=== PATIENT | male | born 1960 | race Caucasian/White ===

== ENCOUNTER 2017-12-14 14:58 | Outpatient (CLI) | payer BC | END 2017-12-14 14:59 | disposition home or self-care (01) | LOC: BICMRI 14:58 | PROVIDERS: ATTEND Chiropractor | DX: M25.511 Pain in right shoulder (principal); M54.2 Cervicalgia; M79.601 Pain in right arm; M75.111 Incomplete rotator cuff tear or rupture of right shoulder, not specified as traumatic; M19.011 Primary osteoarthritis, right shoulder | CPT/HCPCS: 72141 ==

== ENCOUNTER 2018-01-19 09:04 | Outpatient (CLI) | payer BC | END 2018-01-19 09:05 | disposition home or self-care (01) | LOC: BICCT 09:04 | DX: M19.031 Primary osteoarthritis, right wrist (principal) ==

== ENCOUNTER 2019-07-16 17:37 | Inpatient (IN) | payer BC ==
[2019-07-16] MEDS ORDERED: Fentanyl 100 MCG/2 ML VIAL ONE ×2 (17:41→17:48)
--- NOTE | 2019-07-16 18:11 | RAD ---
XR Femur Lt 2 View STANDARD INDICATION: Thrown from horse with right leg pain COMPARISON: None. FINDINGS: Bones: There is a comminuted fracture involving the proximal right subtrochanteric femur. There is a nondisplaced fracture component extending into the right intertrochanteric region. There are 2 separate butterfly fragments involving the medial aspect of the fracture. There is an additional obliquely oriented comminuted fracture involving the distal femoral metaphysea l region without overt extension into the right knee. The distal fracture is displaced posteriorly approximately one half shaft width with medial displacement approximately one cortex width. Soft tissues: There are vascular calcifications seen within the adjacent soft tissues. Joints: The visualized knee and hip appear within normal limits. IMPRESSION: Comminuted segmental fracture of the right femoral shaft and right distal diaphyseal becky on. The proximal fracture component has a nondisplaced fracture that extends into the right intertrochanteric region.
[2019-07-16] MEDS ORDERED: Adacel (T-DAP) 0.5 ML SYRINGE ONE (18:23)
[2019-07-16 18:34] LABS: #Eosinphils 0.1 thou/uL (0.0-0.7); #Lymphocytes 1.8 thou/uL (1.20-3.40); #Monocytes 0.6 thou/uL (0.11-0.59); #Neutrophils 3.9 thou/uL (1.40-6.50); %Basophils 0.4 % (0.0-1.0); %Eosinophils 0.9 % (0.0-10.0); %Monocytes 8.7 % (0.0-10.0); Mean Corpuscular HGB CONC 34.6 g/dL (32.0-36.0); Mean Corpuscular Hemoglobin 33.8 pg (27.0-31.0); Mean Corpuscular Volume 97.7 fL (78.0-98.0); Mean Platelet Volume 7.2 fL (7.4-10.4); Platelet Count 226 thou/uL (130-400); RBC Distribution Width 13.7 % (11.5-14.5); Red Blood Cell (RBC) Count 3.86 mill/uL (4.70-6.10); White Blood Cell (WBC) Count 6.3 thou/uL (4.8-10.8)
[2019-07-16 18:41] LABS: INR-International Normal Ratio 0.9; PTT 23.1 SEC (22.9-36.1); Prothrombin Time 12.4 SEC (12.0-14.7)
[2019-07-16 18:54] LABS: ALT (SGPT) 133 U/L (8-55); AST (SGOT) 120 U/L (5-34); Albumin 4.3 g/dL (3.4-4.8); Alkaline Phosphatase 52 U/L (40-110); Anion Gap 17 mmol/L (10-20); BUN (Urea Nitrogen) 15 mg/dL (8.4-25.7); Bilirubin, Total 0.4 mg/dL (0.2-1.2); Calc. Creatinine Clearance 0 mL/min (70-130); Calcium 9.1 mg/dL (7.8-10.44); Carbon Dioxide 23 mmol/L (23-31); Chloride 101 mmol/L (98-107); Estimated GFR-MDRD 37; Globulin 2.6 g/dL (2.4-3.5); Glucose 114 mg/dL (80-115); Potassium 4.3 mmol/L (3.5-5.1); Protein, Total 6.9 g/dL (5.8-8.1); Sodium 137 mmol/L (136-145)
[2019-07-16] MEDS ORDERED: HYDROmorphone 0.5 MG/0.5 ML SYRINGE ONE ×2 (18:55→19:57)
[2019-07-16] MEDS ORDERED: Promethazine HCl 25 MG/ML VIAL SLOW IVP PRN (19:17)
[2019-07-16] MEDS ORDERED: Dextrose 5% in Water 1,000 ML IV PRN (19:17)
[2019-07-16] MEDS ORDERED: hydrALAZINE 20 MG/ML VIAL SLOW IVP PRN (19:17)
[2019-07-16] MEDS ORDERED: Dextrose 50% Abboject 50 ML SYRINGE SLOW IVP PRN (19:17)
[2019-07-16] MEDS ORDERED: Ondansetron PF 4 MG/2 ML Vial IVP PRN (19:17)
[2019-07-16] MEDS ORDERED: traMADol HCl 50 MG TAB PO PRN (19:21)
[2019-07-16] MEDS ORDERED: Acetaminophen 500 MG TAB PO SCH (19:30)
--- NOTE | 2019-07-16 19:31 | RAD ---
AP view of the pelvis INDICATION: History of being thrown from a horse with right femur fracture COMPARISON: Right femur radiographs dated 07/16/2019 FINDINGS: Exam is limited due to heavy rotation of the pelvis to the left. Bones: There is partial visualization of patient's known proximal right femoral shaft fracture. No ad ditional suspected pelvic fracture is noted. However, exam is heavily limited due to positioning. Hips: The suspected component involving the right intertrochanteric region is not demonstrated in may been artifactual on the prior exam. SI joints and symphysis pubis: Normal appearing. Intrapelvic contents: Within normal limits. IMPRESSION: Limited exam. Proximal right femur fracture.
--- NOTE | 2019-07-16 19:37 | RAD ---
EXAM: CHEST ONE VIEW: 07/16/19 HISTORY: Injury from trauma, preoperative evaluation. COMPARISON: None. FINDINGS: Borderline heart size. Old granulomatous disease. No confluent pneumonia, overt edema, or pleural ef fusion. IMPRESSION: No significant acute intrathoracic disease. No evidence for pneumonia. No pneumothorax or pleural eff usion. POS: RRE
[2019-07-16 19:54] LABS: Lactic Acid 2.7 mmol/L (0.5-2.2)
[2019-07-16] MEDS ORDERED: CEFAZOLIN 2 GM in Premix Bag 1 BAG IVPB SCH (21:15)
--- NOTE | 2019-07-16 21:32 | HP ---
REFERRING PHYSICIAN: Dr. Figueroa. CONSULTING PHYSICIAN: Dr. Ng. HISTORY OF PRESENT ILLNESS: The patient is a 59-year-old male who presented to the emergency department via EMS after being bucked off the horse. Also on arrival , the patient was found to have right shaft and distal femur fracture. Trauma was consulted for admission. Orthopedic Surgery was also consulted, and Dr. Ng plans to take the patient to the OR tomorrow. Upon my evaluation, the patient denied any anticoagulation use or loss of consciousness. He reported he remembered the entire incident. He landed on his right leg, then subsequently on his buttock. He did not strike his head. There were no other signs of trauma on his body. He denies numbness or tingling in his arms or legs. Pulses are intact in all 4 extremities. REVIEW OF SYSTEMS: All additional 10-point review of systems negative except as indicated above. PAST MEDICAL HISTORY: Hypertension, hyperlipidemia, GERD, alcohol abuse. PAST SURGICAL HISTORY: Appendectomy; right wrist, left ankle, and right shoulder surgeries. SOCIAL HISTORY: The patient reports drinking beer daily. He has previously been hospitalized for withdrawal symptoms. He also chews tobacco. He denies any drug use. MEDICATIONS: 1. Amlodipine. 2. Lisinopril. 3. Statin. 4. Nexium. ALLERGIES: NO KNOWN DRUG ALLERGIES. PHYSICAL EXAMINATION: VITAL SIGNS: The patient is afebrile. Respirations 24, oxygen saturation 95% on room air, blood pressure 115/84, pulse 92. PRIMARY SURVEY: Airway intact. Adequate breath sounds bilaterally. 2+ pulses in bilateral radials, femorals, and DPs. GCS 15. Gross motor and sensation intact. There is deformity to the right anterior femur. No bruising or external bleeding. The right lower extremity is also shortened. SECONDARY SURVEY: HEAD: Normocephalic and atraumatic. No gross palpable skull deformities or tenderness. EYES: Pupils, 3 to 2, equal, round, reactive to light. ENT: No hemotympanum. No epistaxis. No septal hematoma. Midface stable to manipulation. No blood in the oropharynx. Dentition is intact. No anterior neck injury/crepitus/tenderness. C-spine, no step-offs or deformities. Tenderness to palpation of the C-spine. C-collar not in place. CHEST: Nontender. No crepitus. No abrasions or ecchymosis. Equal chest movement. Old scar still left anterior chest wall from childhood. ABDOMEN: Soft, nontender, nondistended. PELVIS: Stable to palpation. Nontender. No abrasions or ecchymosis. RECTAL: Deferred. GENITOURINARY: Normal external genitalia. No blood at the meatus. EXTREMITIES: There is deformity to the right anterior thigh with shortening of the right lower extremity. No abrasions or ecchymosis. 2+ pulses in bilateral radials, femorals, and DPs. BACK/SPINE: No step-offs, deformities, or tenderness to palpation of the thoracic or lumbar spine. No abrasions or ecchymosis noted. NEUROLOGIC: 5/5 strength in bilateral air tucker, plantar flexion, and dorsiflexion. Gross normal sensation x4 extremities. LABORATORY FINDINGS: White count 6.3, hemoglobin 13.0, hematocrit 37.7, platelets 226. Sodium 137, potassium 4.3, chloride 101, carbon dioxide 23, BUN 15, creatinine 1.87, glucose 114, lactic acid 2.7, total bilirubin 0.4, AST 120, ALT 133, CK 99. Blood alcohol level 133. DIAGNOSTIC FINDINGS: Chest x-ray demonstrates no significant acute intrathoracic disease. No evidence for pneumonia. No pneumothorax or pleural effusion. Pelvic x-ray demonstrates limited exam, proximal right femur fracture. X-ray of the right femur demonstrates comminuted segmental fracture of the right femoral shaft and right distal diaphyseal region. The proximal fracture component has a nondisplaced fracture that extends into the right intertrochanteric region. ASSESSMENT: 1. Status post bucked from horse. 2. Right femoral shaft and distal femur fracture. 3. Acute kidney injury. 4. Transaminitis, likely due to chronic alcohol abuse. 5. History of hypertension, hyperlipidemia, gastroesophageal reflux disease, and alcohol abuse. 6. Acute alcohol intoxication. 7. Polysubstance abuse. PLAN: The patient will receive a regular diet tonight and be n.p.o. after midnight for the OR tomorrow with Dr. Ng for fixation of multiple right-sided femur fractures. The patient is to receive 1 L of normal saline in the emergency department followed by normal saline at 120 an hour. He will be n.p.o. at midnight. We will repeat blood work tomorrow and reassess acute kidney injury at that time. The patient will receive Serax, folic acid, thymine, multivitamins for alcohol withdrawal prevention. He will receive both p.o. and IV pain medications that are scheduled and p.r.n. for pain control. He will begin working with Physical and Occupational Therapy postoperatively. Until that time, he will be in bed with a knee immobilizer and Quintero traction. We will restart his home medications as clinically indicated. This patient was discussed with Dr. Figueroa before this dictation. Job ID: [id number] [facility]
[2019-07-16] MEDS: Cyclobenzaprine 10 MG TAB PO PRN (21:44)
[2019-07-16] MEDS: Senokot S 8.6-50 MG TAB PO SCH (21:44)
[2019-07-16] MEDS: Famotidine/PF 20 mg/2ml Vial SLOW IVP SCH (21:44)
[2019-07-16] MEDS: Morphine 4 MG/ML VIAL SLOW IVP PRN (21:44)
[2019-07-16] MEDS: Gabapentin 100 MG CAP PO SCH (21:44)
[2019-07-16] MEDS: traMADol HCl 50 MG TAB PO PRN (21:45)
[2019-07-16] MEDS: Oxazepam 10 MG CAP PO SCH (21:45)
[2019-07-16] MEDS: Sodium Chloride 0.9% 1,000 ML IV SCH (21:52)
[2019-07-16 22:15] VITALS: BMI 29.1
[2019-07-16] MEDS: Acetaminophen 500 MG TAB PO SCH (23:28)
[2019-07-16 23:38] LABS: Amphetamine Detected (NotDetected); Barbiturates Screen Not Detected (NotDetected); Benzodiazepine Screen Detected (NotDetected); Cocaine Metabolite Screen Not Detected (NotDetected); Medtox Control Line Valid? VALID (VALID); Medtox Reader # READER 4; Methadone Not Detected (NotDetected); Methamphetamine Not Detected (NotDetected); Opiate Screen Detected (NotDetected); Oxycodone Screen Not Detected (NotDetected); Phencyclidine (PCP) Not Detected (NotDetected); THC/Cannabinoid Screen Not Detected (NotDetected); Tricyclic Screen Not Detected (NotDetected)
[2019-07-17] MEDS: Morphine 4 MG/ML VIAL SLOW IVP PRN ×5 (00:23→16:39)
[2019-07-17] MEDS: traMADol HCl 50 MG TAB PO PRN ×2 (05:02→21:05)
[2019-07-17] MEDS: Acetaminophen 500 MG TAB PO SCH ×3 (05:03→17:12)
[2019-07-17] MEDS: Oxazepam 10 MG CAP PO SCH ×3 (05:04→21:05)
[2019-07-17 05:40] LABS: #Eosinphils 0.1 thou/uL (0.0-0.7); #Lymphocytes 1.5 thou/uL (1.20-3.40); #Monocytes 0.5 thou/uL (0.11-0.59); %Basophils 0.5 % (0.0-1.0); %Eosinophils 1.2 % (0.0-10.0); %Lymphocytes 24.3 % (21.0-51.0); %Monocytes 7.4 % (0.0-10.0); %Neutrophils 66.7 % (42.0-75.0); Hemoglobin 11.2 g/dL (14.0-18.0); Mean Corpuscular HGB CONC 34.1 g/dL (32.0-36.0); Mean Corpuscular Hemoglobin 33.3 pg (27.0-31.0); Mean Corpuscular Volume 97.7 fL (78.0-98.0); Mean Platelet Volume 7.2 fL (7.4-10.4); Platelet Count 211 thou/uL (130-400); RBC Distribution Width 13.7 % (11.5-14.5); Red Blood Cell (RBC) Count 3.36 mill/uL (4.70-6.10); White Blood Cell (WBC) Count 6.1 thou/uL (4.8-10.8)
[2019-07-17 05:57] LABS: Lactic Acid 1.2 mmol/L (0.5-2.2)
[2019-07-17] MEDS: Sodium Chloride 0.9% 1,000 ML IV SCH ×2 (06:40→14:54)
[2019-07-17 06:45] LABS: Anion Gap 13 mmol/L (10-20); BUN (Urea Nitrogen) 15 mg/dL (8.4-25.7); Calc. Creatinine Clearance 125 mL/min (70-130); Calcium 8.4 mg/dL (7.8-10.44); Carbon Dioxide 25 mmol/L (23-31); Chloride 102 mmol/L (98-107); Estimated GFR-MDRD Greater than 90; Glucose 114 mg/dL (80-115); Magnesium 1.7 mg/dL (1.6-2.6); Phosphorus 3.1 mg/dL (2.3-4.7); Sodium 136 mmol/L (136-145)
[2019-07-17] MEDS ORDERED: Fentanyl 250 MCG/5 ML VIAL ONE (07:09)
--- NOTE | 2019-07-17 07:27 | CON ---
DATE OF CONSULTATION: 07/16/2019 REQUESTING PHYSICIAN: Carlos Figueroa MD. BRIEF HISTORY OF PRESENT ILLNESS: The patient is examined in the emergency room at [facility]. He is a 59-year-old gentleman who presented to the emergency room after being bucked off a horse. Upon arrival at [place], he had complaints of right thigh pain. Workup included x-rays of the right thigh and hip. These x-rays demonstrated a proximal femur fracture with a nondisplaced fracture line through the intertrochanteric region of the femur and then a comminuted fracture in the subtroch portion of the proximal femur. In addition to these proximal fractures, he was also found to have a short oblique fracture of the supracondylar distal femur on the same side. There was no loss of consciousness. The patient is currently not on any anticoagulants. His sole complaint is that of right leg pain. PAST MEDICAL HISTORY: Remarkable for hypertension, gastroesophageal reflux. PAST SURGICAL HISTORY: Includes multiple orthopedic injuries with left ankle fracture, right wrist fracture, a right shoulder arthroscopy, as well as an appendectomy. MEDICATIONS: Include 1. Amlodipine. 2. Lisinopril. 3. Nexium. 4. A medication for cholesterol. ALLERGIES: NONE KNOWN. SOCIAL HISTORY: He does drink alcohol daily. He also chews tobacco. He denies recreational drug use. FAMILY HISTORY: Noncontributory for this injury. REVIEW OF SYSTEMS: The patient denies recent fevers, chills, or sweats. Denies chest pain or shortness of breath. Denies numbness or tingling in the lower extremities. PHYSICAL EXAMINATION: VITAL SIGNS: The patient is afebrile. He has a heart rate of 92, respiratory rate of 24, and blood pressure 115/84. HEENT: Atraumatic and normocephalic. HEART: Shows a regular rate and rhythm without murmur. LUNGS: Clear to auscultation bilaterally with good breath sounds. ABDOMEN: Soft and nontender. PELVIS: Stable. EXTREMITIES: Remarkable for bilateral upper extremities with no complaints of pain. He is moving shoulders, elbows, wrists and hands without difficulty. He also denies any problems with the left lower extremity. The right lower extremity is in skin traction. He reports some pain throughout the thigh. There is no appreciable deformity of the lower leg or ankle or foot. He is able to wiggle his toes. He has intact subjective sensation over the dorsal and plantar surfaces of the foot. LABORATORY DATA: White count of 6.3, hematocrit of 37.7, and 226,000 platelets. IMAGING DATA: X-rays: Two-view x-ray of the right femur remarkable for a comminuted fracture of the subtrochanteric region with a fracture line extending into the intertrochanteric region and then a supracondylar oblique distal femur fracture approximately 1 inch above the physeal scar distally. AP pelvis x-ray confirms the proximal femur fracture. ASSESSMENT: A 59-year-old gentleman status post thrown from horse sustaining segmental fracture of right femur. PLAN: At this time, the patient is admitted to the Trauma Service. I have discussed with the patient that he does have a complex fracture of this right femur that presents some challenges given the subtrochanteric portion proximally as well as the extreme distal portion of the supracondylar fracture. I have discussed with the patient that at this time my plan would be to proceed with open reduction and internal fixation of both sites using separate hardware for the two major fracture sites. Today we also discussed risks and benefits of surgery. Risks include, but are not limited to, bleeding, infection, nerve injury, DVT, PE, malunion, nonunion, hardware failure, loss of limb or life. The patient appears to understand and does wish to proceed. Informed consent will be obtained prior to surgery. Job ID: [id number]
[2019-07-17] MEDS ORDERED: Oxazepam 10 MG CAP PO SCH (08:00)
[2019-07-17] MEDS ORDERED: Ondansetron HCl/PF 4 MG/2 ML Vial IVP PRN (10:14)
[2019-07-17] MEDS ORDERED: Promethazine HCl 25 MG/ML VIAL SLOW IVP PRN (10:14)
[2019-07-17] MEDS ORDERED: Promethazine HCl 25 MG/ML VIAL IM PRN (10:14)
[2019-07-17] MEDS ORDERED: Rocuronium Bromide 10 MG/ML (10ML VIAL) ONE (10:33)
[2019-07-17] MEDS ORDERED: Ketorolac Tromethamine 30 MG/ML VIAL ONE (10:33)
[2019-07-17] MEDS ORDERED: Lidocaine 1% PF 5 ML VIAL ONE (10:33)
[2019-07-17] MEDS ORDERED: Ondansetron PF 4 MG/2 ML Vial ONE (10:33)
[2019-07-17] MEDS ORDERED: PHENYLEPHRINE-NS 100 MCG/ML 10 ML SYRINGE ONE (10:33)
[2019-07-17] MEDS ORDERED: Glycopyrrolate 0.2 MG/ML 5 ML SYRINGE ONE (10:33)
[2019-07-17] MEDS ORDERED: PROPOFOL 200 MG/20 ML VIAL ONE (10:33)
[2019-07-17] MEDS ORDERED: Fentanyl 100 MCG/2 ML VIAL ONE (11:25)
--- NOTE | 2019-07-17 13:55 | PDOC.BPN ---
- Brief Progress Note I have discussed this patient with Sindy Ahuja and reviewed the pertinent imaging and laboratory studies. I agree with her documented findings and plan. Briefly, this is a 59 yo male s/p ejection from a horse with complex femur fracture, alcohol intoxication, and evidence of polysubstance abuse. ORS is planning ORIF of his femur fracture today. His laboratory abnormalities have resolved with IVF resuscitation. Rehabilitation consultation pending.
[2019-07-17] MEDS: Famotidine/PF 20 mg/2ml Vial SLOW IVP SCH ×2 (14:37→21:06)
[2019-07-17] MEDS: Gabapentin 100 MG CAP PO SCH ×4 (14:38→21:06)
[2019-07-17] MEDS: Senokot S 8.6-50 MG TAB PO SCH ×2 (14:38→21:05)
[2019-07-17] MEDS: Polyethylene Glycol 3350 17 GM Packet PO SCH (14:38)
[2019-07-17] MEDS: Multivitamin W/ Minerals 1 TAB PO SCH (14:38)
[2019-07-17] MEDS: Folic Acid 1 MG TAB PO SCH (14:38)
[2019-07-17] MEDS: Thiamine 100 MG TAB PO SCH (14:40)
[2019-07-17 16:08] LABS: #Monocytes 0.5 thou/uL (0.11-0.59); #Neutrophils 6.5 thou/uL (1.40-6.50); %Basophils 0.5 % (0.0-1.0); %Eosinophils 0.4 % (0.0-10.0); %Lymphocytes 12.8 % (21.0-51.0); %Monocytes 5.7 % (0.0-10.0); %Neutrophils 80.5 % (42.0-75.0); Hemoglobin 9.7 g/dL (14.0-18.0); Mean Corpuscular HGB CONC 34.3 g/dL (32.0-36.0); Mean Corpuscular Hemoglobin 33.6 pg (27.0-31.0); Mean Corpuscular Volume 97.9 fL (78.0-98.0); Mean Platelet Volume 7.1 fL (7.4-10.4); Platelet Count 194 thou/uL (130-400); RBC Distribution Width 13.8 % (11.5-14.5); Red Blood Cell (RBC) Count 2.89 mill/uL (4.70-6.10); White Blood Cell (WBC) Count 8.1 thou/uL (4.8-10.8)
--- NOTE | 2019-07-17 18:43 | PRG ---
DATE OF SERVICE: 07/17/2019 SUBJECTIVE: The patient was admitted this past evening status post being thrown from a horse, in which he sustained a right femoral shaft and distal femur fracture. The patient underwent open reduction and internal fixation of same today and he tolerated this procedure well. Postoperatively, his pain is being controlled and he is tolerating a diet. Due to timing, he is not able to work with therapy today. The patient at time of admission showed an acute kidney injury that has subsequently resolved. PHYSICAL EXAMINATION: VITAL SIGNS: Temperature is 97.8, heart rate 86, blood pressure 123/80, respirations 20, and oxygen saturation 95% on 3 L via nasal cannula. GENERAL: The patient is resting comfortably in bed. He was awake when I entered the room, but he was awaken to verbal stimuli. He has no complaints at this time. HEENT: Unremarkable. LUNGS: Clear to auscultation bilaterally. HEART: Regular rate and rhythm. ABDOMEN: Soft, flat, and nontender with active bowel sounds. EXTREMITIES: Neurovascularly intact x4. Postop dressing is clean, dry, and intact. ASSESSMENT: 1. Status post thrown from horse. 2. Status post open reduction and internal fixation of right segmental femur fracture. 3. Acute kidney injury, resolved. 4. Transaminitis, likely due to chronic alcohol abuse. 5. Acute alcohol intoxication. 6. Polysubstance abuse. 7. History of hypertension, hyperlipidemia, gastroesophageal reflux disease, and alcohol abuse. PLAN: Will be to continue supportive care. Encourage physical and occupational therapy and discuss placement tomorrow. The patient due to his history of alcohol abuse, was started on Serax, folic acid, and thiamin. All of his IV pain medications have been converted to p.o. pain medications. Job ID: [id number]
[2019-07-17] MEDS: Ibuprofen 600 MG TAB PO SCH (21:04)
[2019-07-17] MEDS: Cyclobenzaprine 10 MG TAB PO PRN (21:06)
--- NOTE | 2019-07-17 21:45 | OP ---
DATE OF PROCEDURE: 07/17/2019 PREOPERATIVE DIAGNOSES: 1. Right intertrochanteric/subtrochanteric femur fracture. 2. Right supracondylar distal femur fracture. POSTOPERATIVE DIAGNOSES: 1. Right intertrochanteric/subtrochanteric femur fracture. 2. Right supracondylar distal femur fracture. PROCEDURES PERFORMED: 1. Open reduction and internal fixation of right intertrochanteric/subtrochanteric femur fracture. 2. Open reduction and internal fixation of right supracondylar distal femur fracture. ANESTHESIA: General. ESTIMATED BLOOD LOSS: 400 mL. SUPERVISOR FUR DRESSING: Jack Uriarte PA-C. IMPLANTS: 1. Synthes system was used with a 10-hole 135-degree DHS side plate and 100-degree hip screw with 4.5 mm cortical screws for the sideplate. 2. Variable angle LCP curved condylar plate for the distal femur with combination of cortical and locking screws. COMPLICATIONS: None. DRAINS: None. SPECIMENS: None. OUTCOME: Near-anatomic alignment. INDICATIONS FOR PROCEDURE: The patient is a 59-year-old gentleman status post thrown from a horse sustaining a complex fracture of the right femur. His fracture starts at the intertrochanteric region with a nondisplaced intertrochanteric fracture line, but then extends into a comminuted subtrochanteric fracture and then there is a segmental fracture distally just above the supracondylar region through the metaphysis. After discussion with the patient including risks and benefits, we decided to proceed with open reduction and internal fixation. Informed consent has been obtained. I believe all questions have been answered. DESCRIPTION OF PROCEDURE: The patient was brought to the operating room and a time-out performed followed by induction of general anesthesia. He was positioned supine on the fracture table with the injured extremity held in gentle longitudinal traction, but also supported with an armboard. The well leg was scissored to allow for AP and lateral C-arm imaging of the right hip. Next, a sterile prep and drape was performed of the right lateral thigh. Under C-arm guidance, an incision was made just distal to the greater trochanter extending down the lateral thigh. After skin was sharply incised, dissection was carried down to the underlying fascia marybeth and this was incised in line with the skin incision revealing the underlying fascia of the vastus lateralis. This fascia was also incised in line with the skin incision. Then, the muscle belly was reflected off the posterior leaflet and reflected anteriorly exposing the lateral cortex of the femur. Using 135-degree guide, a threaded guidewire was passed through the lateral cortex of the femur up the femoral neck into the femoral head approaching a [id number] position. Once appropriately positioned, this was further prepared using a step drill to an appropriate depth and then a tap to accept the hip screw. The hip screw was inserted under C-arm guidance. Next, a 10-hole plate was passed over this hip screw with the barrel driven up into the femoral canal over this hip screw. This proximal construct was reduced to the distal shaft fragment, this under C-arm guidance and direct visualization. Once acceptably aligned, it was held in place with bone clamps and then using compression technique, cortical screws were placed distally. This was then followed by insertion of a total of 3 interfragmentary screws through the plate capturing the large medial butterfly fragment. This resulted in acceptable alignment of this subtrochanteric fracture and stabilization of the intertrochanteric extension. This wound was irrigated with Pulsavac and then closed in layers. Some damage to the muscle belly that incurred at the time of the fracture was reapproximated with 0 Vicryl followed by #1 Vicryl for the fascia marybeth and then 2-0 Vicryl subcutaneously and ian for the skin. Attention was placed distally. Again, a lateral incision was made this time starting at about the joint line, extending proximally along the lateral border of the distal femur. After skin was sharply incised, dissection was carried down to the iliotibial band. This was incised in line with skin incision reflected anteriorly and posteriorly. The vastus lateralis was reflected anteriorly gaining access to the fracture. The fracture was able to be reduced under direct visualization and held in place provisionally with a bone clamp and then a total of 3 K-wires were passed across the fracture to further stabilize it. AP and lateral C-arm images were then obtained to confirm acceptable reduction of the fracture. A curved condylar plate was affixed to the lateral aspect of the distal femur. This was held in place initially with a wire at the intercondylar region and then a cortical screw was placed proximal to the main fracture line. An additional cortical screw was then placed distal to the main fracture line getting good stability of the plate against the femur. Multiple locking screws were placed both proximally and distally to further stabilize this construct. At the completion of this, final AP and lateral C-arm images were obtained that showed near-anatomic alignment. This wound was again irrigated with Pulsavac and then closed in layers with #1 Vicryl for the IT band followed by 2-0 Vicryl and ian for the skin. Xeroform gauze and tape dressing were applied to the lateral thigh and then, the patient was transferred to recovery room in stable condition. There were no complications. He tolerated the procedure well. Job ID: [id number]
[2019-07-18] MEDS: Acetaminophen 500 MG TAB PO SCH ×4 (00:54→17:22)
[2019-07-18] MEDS: traMADol HCl 50 MG TAB PO PRN ×3 (03:15→18:20)
[2019-07-18] MEDS: Ibuprofen 600 MG TAB PO SCH ×3 (03:15→17:23)
[2019-07-18] MEDS: Cyclobenzaprine 10 MG TAB PO PRN (03:16)
[2019-07-18] MEDS: Oxazepam 10 MG CAP PO SCH ×3 (05:42→21:28)
[2019-07-18 06:03] LABS: #Eosinphils 0.1 thou/uL (0.0-0.7); #Lymphocytes 1.6 thou/uL (1.20-3.40); #Monocytes 0.5 thou/uL (0.11-0.59); #Neutrophils 3.9 thou/uL (1.40-6.50); %Basophils 0.7 % (0.0-1.0); %Lymphocytes 25.6 % (21.0-51.0); %Monocytes 7.4 % (0.0-10.0); %Neutrophils 64.3 % (42.0-75.0); Hemoglobin 8.9 g/dL (14.0-18.0); Mean Corpuscular HGB CONC 33.6 g/dL (32.0-36.0); Mean Corpuscular Hemoglobin 32.9 pg (27.0-31.0); Mean Corpuscular Volume 98.1 fL (78.0-98.0); Mean Platelet Volume 7.5 fL (7.4-10.4); Platelet Count 167 thou/uL (130-400); RBC Distribution Width 13.8 % (11.5-14.5); Red Blood Cell (RBC) Count 2.69 mill/uL (4.70-6.10); White Blood Cell (WBC) Count 6.1 thou/uL (4.8-10.8)
--- NOTE | 2019-07-18 07:50 | RAD ---
Radiograph right femur 2 views: DATE: 07/18/2019 10:48 AM HISTORY: 59-year-old male with acute traumatic, comminuted right multifocal femoral diaphyseal fractures. COMPARISON: 07/17/2019 FINDINGS: Total of 10 small [id number] fluoroscopic spot images obtained with C-arm in the OR. Distal femoral metaphyseal fracture has been reduced and fixated with lateral metallic plate with mul tiple screws from distal diaphysis to femoral condyles. Nearly anatomical alignment. The right subcapital proximal femoral diaphyseal fractures have been reduced, and fixated with dynamic compress ion screw (upper tip within central portion of femoral head) attached to long lateral metallic plate that reaches mid diaphysis, with multiple screws. IMPRESSION: Ongoing open reduction internal fixation of acute, traumatic, comminuted, displaced fractures of prox imal femoral shaft and distal femoral metaphysis.
[2019-07-18] MEDS: Thiamine 100 MG TAB PO SCH (09:55)
[2019-07-18] MEDS: Multivitamin W/ Minerals 1 TAB PO SCH (09:56)
[2019-07-18] MEDS: Folic Acid 1 MG TAB PO SCH (09:56)
[2019-07-18] MEDS: Senokot S 8.6-50 MG TAB PO SCH ×2 (09:56→21:28)
[2019-07-18] MEDS: Polyethylene Glycol 3350 17 GM Packet PO SCH (09:56)
[2019-07-18] MEDS: Gabapentin 100 MG CAP PO SCH ×3 (09:56→21:28)
[2019-07-18] MEDS: Enoxaparin Sodium 40 MG/0.4 ML SYRINGE SC SCH (09:56)
--- NOTE | 2019-07-18 15:17 | PRG ---
DATE OF SERVICE: 07/18/2019 SUBJECTIVE: This is a patient who was bucked off a horse and is postop day 1 from repair of a right femoral shaft and distal femur fracture. He states his pain is well controlled today. He anticipates being able to work with Physical Therapy today. It is likely recommended that the patient will need to go to rehab. His was present with him today during rounds and informed us of other medicines the patient needs to be taking. OBJECTIVE: VITAL SIGNS: Afebrile, heart rate 87, respirations 12, and saturating 96% on 2 L nasal cannula, blood pressure 112/73. GENERAL: Well appearing. RESPIRATORY: Clear to auscultation bilaterally. No acute respiratory distress. CARDIAC: Regular rate and rhythm. No murmurs. ABDOMEN: Soft, flat, nondistended. Active bowel sounds. NEUROLOGIC: The patient is not having any tremors nor appears agitated. ASSESSMENT: 1. Status post thrown from horse. 2. Postoperative day 1, status post open reduction and internal fixation of right segmental femur fracture. 3. Acute kidney injury, resolved. 4. Transaminitis, improving. 5. Acute alcohol intoxication. 6. Polysubstance abuse. 7. History of hypertension, hyperlipidemia, gastroesophageal reflux disease, and alcohol abuse. PLAN: Continue supportive care. Continue Serax for history of alcoholism. Continue to monitor for withdrawals. Continue PT and OT. We will add iron and vitamin C today for his iron deficiency anemia. We will also begin Lovenox 40 mg daily for DVT prophylaxis. We will place his rehab screen today as well for disposition. Job ID: [id number] MTDD
[2019-07-18] MEDS: Ferrous Sulfate 325 MG TAB PO SCH (17:22)
[2019-07-18] MEDS: Ascorbic Acid 500 mg Chewable Tablet PO SCH (17:23)
[2019-07-19] MEDS: Acetaminophen 500 MG TAB PO SCH ×2 (00:04→05:24)
[2019-07-19] MEDS: Ibuprofen 600 MG TAB PO SCH (02:23)
--- NOTE | 2019-07-19 02:29 | PRG ---
DATE OF SERVICE: 07/19/2019 SUBJECTIVE: The patient is currently on the surgical floor. He is postop day 1, status post open reduction and internal fixation of a right femur fracture. The patient reports that his pain is controlled, he is tolerating a diet and has begun working with Physical Therapy today. The patient reports that his desire is to go home with home PT at time of discharge. PHYSICAL EXAMINATION: VITAL SIGNS: Stable. The patient is afebrile. GENERAL: The patient is resting comfortably in bed. He is awake, alert, and oriented x3. Ankush Coma Scale is 15. LUNGS: Clear to auscultation bilaterally. HEART: Regular rate and rhythm. ABDOMEN: Soft, flat, nontender with active bowel sounds. EXTREMITIES: Neurovascularly intact x4. Right lower extremity has a clean, dry, and intact dressing. ASSESSMENT: 1. Status post being thrown from horse. 2. Postop day #1, status post open reduction and internal fixation of right femur fracture. 3. Acute kidney injury, resolved. 4. Acute alcohol intoxication, resolved. 5. Polysubstance abuse. 6. History of hypertension, hyperlipidemia, gastroesophageal reflux disease, and alcohol abuse. PLAN: Plan will be to continue supportive care. Encourage physical and occupational therapy and await final placement decision. Job ID: [id number]
[2019-07-19 05:03] LABS: #Eosinphils 0.1 thou/uL (0.0-0.7); #Lymphocytes 1.7 thou/uL (1.20-3.40); #Monocytes 0.4 thou/uL (0.11-0.59); #Neutrophils 5.3 thou/uL (1.40-6.50); %Basophils 0.4 % (0.0-1.0); %Eosinophils 1.5 % (0.0-10.0); %Lymphocytes 22.5 % (21.0-51.0); %Monocytes 5.3 % (0.0-10.0); %Neutrophils 70.3 % (42.0-75.0); Hemoglobin 8.3 g/dL (14.0-18.0); Mean Corpuscular HGB CONC 33.7 g/dL (32.0-36.0); Mean Corpuscular Hemoglobin 33.3 pg (27.0-31.0); Mean Corpuscular Volume 98.6 fL (78.0-98.0); Mean Platelet Volume 7.3 fL (7.4-10.4); Platelet Count 150 thou/uL (130-400); RBC Distribution Width 13.7 % (11.5-14.5); Red Blood Cell (RBC) Count 2.49 mill/uL (4.70-6.10); White Blood Cell (WBC) Count 7.5 thou/uL (4.8-10.8)
[2019-07-19] MEDS: traMADol HCl 50 MG TAB PO PRN (05:24)
[2019-07-19] MEDS: Oxazepam 10 MG CAP PO SCH ×2 (05:24→14:57)
[2019-07-19] MEDS ORDERED: Ibuprofen 600 MG TAB PO PRN (06:22)
[2019-07-19] MEDS: Enoxaparin Sodium 40 MG/0.4 ML SYRINGE SC SCH (08:34)
[2019-07-19] MEDS: Polyethylene Glycol 3350 17 GM Packet PO SCH (08:34)
[2019-07-19] MEDS: Senokot S 8.6-50 MG TAB PO SCH (08:34)
[2019-07-19] MEDS: Thiamine 100 MG TAB PO SCH (08:35)
[2019-07-19] MEDS: Multivitamin W/ Minerals 1 TAB PO SCH (08:35)
[2019-07-19] MEDS: Folic Acid 1 MG TAB PO SCH (08:35)
[2019-07-19] MEDS: Ascorbic Acid 500 mg Chewable Tablet PO SCH ×2 (08:36→17:49)
[2019-07-19] MEDS: Gabapentin 100 MG CAP PO SCH ×2 (08:36→14:57)
[2019-07-19] MEDS: Ferrous Sulfate 325 MG TAB PO SCH ×2 (08:36→17:49)
[2019-07-19] MEDS ORDERED: Amlodipine 5 MG TAB PO SCH (09:00)
[2019-07-19] MEDS ORDERED: Lisinopril/Hydrochlorothiazide 20 mg/12.5 mg Tablet PO SCH (09:00)
[2019-07-19] MEDS ORDERED: Acetaminophen/Codeine 30-300mg Tablet PO PRN (10:44)
[2019-07-19] MEDS ORDERED: Acetaminophen 500 MG TAB PO SCH (10:45)
[2019-07-19 11:27] VITALS: BP 137/78; TEMP 97.3
[2019-07-19] MEDS: Acetaminophen/Codeine 30-300mg Tablet PO SCH ×2 (12:16→17:48)
[2019-07-19] MEDS ORDERED: Acetaminophen 325 MG TAB PO SCH (14:00)
--- NOTE | 2019-07-19 17:19 | DIS ---
DATE OF ADMISSION: 07/16/2019 DATE OF DISCHARGE: 07/19/2019 ADMISSION DIAGNOSES: 1. Status post throw from a horse. 2. Right femur fracture. 3. Acute kidney injury. 4. Acute alcohol intoxication. 5. Polysubstance abuse, history of hypertension, gastroesophageal reflux disease, and alcohol abuse. DISCHARGE DIAGNOSES: 1. Status post being thrown from a horse. 2. Right femur fracture, status post open reduction and internal fixation of right femur fracture. 3. Acute kidney injury, resolved. 4. Acute alcohol intoxication, resolved. 5. Polysubstance abuse, stable. 6. History of hypertension. 7. Gastroesophageal reflux disease, stable. CONSULTING PHYSICIAN: Maikol Ng MD PROCEDURES: Open reduction and internal fixation of right intertrochanteric subtrochanteric femur fracture, open reduction and internal fixation of right subcondylar distal femur fracture. HOSPITAL COURSE: Mr. Saba is a 59-year-old male with status post fall from a horse. He sustained a right femur fracture with 2 location. The patient underwent ORIF of right femur fracture with Dr. Ng. The patient tolerated the procedure well. Postop, the patient has been doing good. Pain is well controlled. He tolerated the regular diet. He developed no alcohol abuse withdrawal syndrome, and he has an alcohol intoxication stable. His kidney function is improved. He tolerated with regular diet and he had been walking very well with physical therapy. However, physical therapy recommended placement in rehabilitation facility. The patient is being accepted and the patient will go to rehabilitation facility today. PHYSICAL EXAMINATION: GENERAL: The patient lying in bed, comfortable, with no acute respiratory distress. VITAL SIGNS: Temperature 97.3, heart rate 96, respiratory rate 16, O2 saturation 96% on room air, and blood pressure 137/78. LUNGS: Clear bilaterally. HEART: Regular rate and rhythm. ABDOMEN: Soft and nondistended. EXTREMITIES: Neurovascularly intact x4. Postop dressing spleen; dry, clean, and intact. NEUROLOGY: No focal neurology deficits. DISCHARGE DISPOSITION: Rehabilitation facility. DISCHARGE CONDITION: Good. DISCHARGE INSTRUCTIONS: The patient is to take medication as directed. The patient is to continue working with PT/OT. The patient is to continue DVT prophylaxis. The patient is to see Dr. Ng in 2 weeks and discharge medication are Tylenol, ibuprofen, tramadol, Serax, vitamin B12, thiamine, and . DVT prophylaxis with Lovenox 40 mg every day. Job ID: [id number]
[2019-07-19] MEDS ORDERED: Atorvastatin Calcium 10 MG TAB PO SCH (21:00)
== END 2019-07-19 18:18 | DRG 481 ==
LOC: EDBD 17:37 → ERS 17:37 → SURG A 19:21
PROVIDERS: ADMIT Surgery; ATTEND Surgery
PROC: 0QSB04Z Reposition Right Lower Femur with Internal Fixation Device, Open Approach (ICD-10-PCS; principal; 2019-07-17)
PROC: 0QS604Z Reposition Right Upper Femur with Internal Fixation Device, Open Approach (ICD-10-PCS; 2019-07-17)
DX: S72.141A Displaced intertrochanteric fracture of right femur, initial encounter for closed fracture (principal); N17.9 Acute kidney failure, unspecified; F10.129 Alcohol abuse with intoxication, unspecified; I10 Essential (primary) hypertension; K21.9 Gastro-esophageal reflux disease without esophagitis; F17.220 Nicotine dependence, chewing tobacco, uncomplicated; F19.10 Other psychoactive substance abuse, uncomplicated; S72.451A Displaced supracondylar fracture without intracondylar extension of lower end of right femur, initial encounter for closed fracture; Y90.6 Blood alcohol level of 120-199 mg/100 ml; V80.010A Animal-rider injured by fall from or being thrown from horse in noncollision accident, initial encounter; Y93.52 Activity, horseback riding; Z90.49 Acquired absence of other specified parts of digestive tract; Z79.899 Other long term (current) drug therapy
CPT/HCPCS: 36415; 71045; 72170; 76000; 80048; 80053; 80306; 80307; 82550; 83605; 83735; 84100; 85025; 85610; 85730; 86850; 86900; 86901; 90715; 93005; C1713; C1769; G0390; J0690; J1170; J1650; J1885; J2001; J2270; J2405; J2704; J3010; S0028

== ENCOUNTER 2019-10-14 13:49 | Outpatient (CLI) | payer BC ==
--- NOTE | 2019-10-14 17:05 | MRI ---
MRI OF THE RIGHT KNEE WITHOUT CONTRAST: 10/14/19 HISTORY: Tear of unspecific meniscus. COMPARISON: Radiograph of the knee 07/22/19 for a reference. FINDINGS: Exam is limited due to extensive susceptibility artifact. MEDIAL MENISCUS: Undersurface flap tear of body and posterior horn of the medial meniscus with gutter extrusion of the flap fragment. LATERAL MENISCUS: Completely obscured by susceptibility. PCL is intact. ACL evaluation is severely limited. EXTENSOR MECHANISM: Extensor mechanism evaluation is severely limited. BONES: Also susceptibility limited. No fracture is appreciated. IMPRESSION: 1. Severely limited exam due to susceptibility artifact. There is an undersurface flap tear of t he posterior horn and body junction medial meniscus with subtle gutter extrusion. 2. High concern for undersurface flap tear of the body and posterior horn lateral meniscus altho ugh there is extensive distortion due to susceptibility. POS: HOME
== END 2019-10-14 13:50 | disposition home or self-care (01) ==
LOC: SCSMRI 13:49
PROVIDERS: ATTEND Family Medicine
DX: S83.241A Other tear of medial meniscus, current injury, right knee, initial encounter (principal)

== ENCOUNTER 2020-01-10 14:56 | Outpatient (CLI) | payer BC ==
--- NOTE | 2020-01-10 15:57 | CT ---
EXAM: CT Lower Ext Rt WO Con DATE: 01/10/2020 12:00 AM INDICATION: Right lower extremity pain after open reduction internal fixation of right femur fractur e COMPARISON: Prior right femur radiograph dated July 16, 2019 and January 04, 2020 FINDING: There is a stable hip screw and sideplate fixating the comminuted proximal femoral shaft fr acture. Fracture alignment is near anatomic and is unchanged. The second from the proximalmost interfragmentary screw involving the side plate is mildly backtracked from the sideplate approximatel y 6 mm. Otherwise, the hardware projects in expected position. There is incomplete healing of the comminuted proximal femoral shaft fracture. There is a SEA plate involving the lateral aspect of the distal femur fixating the patient's supraco ndylar femur fracture. There is incomplete healing of the supracondylar femur fracture. 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 There is no evidence to suggest hardware failure. Fracture projects in the expected position. There are mild vascular calcifications involving the right lower extremity vasculature. No overt soft tissue abnormality is noted. There is a fat-containing right inguinal hernia. There is colonic diverticulosis. No enlarged lymph nodes are evident. IMPRESSION: 1. Incompletely healed, instrumented, comminuted proximal right femoral shaft fracture and distal rig ht supracondylar femur fracture. 2. The second from the proximalmost interfragmentary screw involving the proximal right hip screw and sideplate is mildly backtracked from the sideplate approximately 6 mm. No additional hardware abnormality demonstrated
== END 2020-01-10 14:57 | disposition home or self-care (01) ==
LOC: BICCT 14:56
PROVIDERS: ATTEND Orthopaedic Surgery
DX: S72.21XK Displaced subtrochanteric fracture of right femur, subsequent encounter for closed fracture with nonunion (principal); S72.351K Displaced comminuted fracture of shaft of right femur, subsequent encounter for closed fracture with nonunion

== ENCOUNTER 2020-05-13 12:52 | Inpatient (IN) | payer BC ==
[2020-05-13] MEDS ORDERED: Vancomycin HCl 1.25 GM in Sodium Chloride 0.9% 250 ML 250 ML IVPB SCH ×2 (14:00→21:00)
[2020-05-13 14:08] LABS: #Eosinphils 0.1 thou/uL (0.0-0.7); #Lymphocytes 1.3 thou/uL (1.20-3.40); #Monocytes 0.5 thou/uL (0.11-0.59); #Neutrophils 5.2 thou/uL (1.40-6.50); %Basophils 0.6 % (0.0-1.0); %Eosinophils 1.3 % (0.0-10.0); %Lymphocytes 17.8 % (21.0-51.0); %Monocytes 7.6 % (0.0-10.0); %Neutrophils 72.8 % (42.0-75.0); Mean Corpuscular HGB CONC 35.3 g/dL (32.0-36.0); Mean Corpuscular Hemoglobin 33.6 pg (27.0-31.0); Mean Corpuscular Volume 95.2 fL (78.0-98.0); Mean Platelet Volume 6.7 fL (7.4-10.4); Platelet Count 152 thou/uL (130-400); RBC Distribution Width 16.7 % (11.5-14.5); Red Blood Cell (RBC) Count 3.26 mill/uL (4.70-6.10); White Blood Cell (WBC) Count 7.1 thou/uL (4.8-10.8)
[2020-05-13] MEDS ORDERED: Sodium Chloride 0.9% 100 ML ONE (14:15)
[2020-05-13] MEDS ORDERED: cefTRIAXone\\ROCEPHIN 2 GM VIAL ONE (14:15)
[2020-05-13 14:31] LABS: ALT (SGPT) 27 U/L (8-55); AST (SGOT) 37 U/L (5-34); Albumin 3.7 g/dL (3.4-4.8); Alkaline Phosphatase 112 U/L (40-110); Anion Gap 16 mmol/L (10-20); BUN (Urea Nitrogen) 10 mg/dL (8.4-25.7); Bilirubin, Total 0.7 mg/dL (0.2-1.2); Calc. Creatinine Clearance 0 mL/min (70-130); Calcium 9.2 mg/dL (7.8-10.44); Carbon Dioxide 25 mmol/L (23-31); Chloride 93 mmol/L (98-107); Globulin 2.8 g/dL (2.4-3.5); Glucose 138 mg/dL (80-115); Potassium 3.3 mmol/L (3.5-5.1); Protein, Total 6.5 g/dL (5.8-8.1); Sodium 131 mmol/L (136-145)
--- NOTE | 2020-05-13 14:54 | RAD ---
EXAM: 2 views of the right femur HISTORY: Redness and swelling in right leg COMPARISON: 04/23/2020, 04/12/2020 FINDINGS: There is an antegrade intramedullary nancy in the femur spanning a fracture of the proximal d iaphysis which is still healing. No perihardware lucency is identified. There are no distal screws. The proximal screws are intact. The nancy spans a healed fracture in the distal diaphysis of the femur as well. IMPRESSION: Healing proximal femur fracture
[2020-05-13] MEDS ORDERED: Ondansetron PF 4 MG/2 ML Vial IVP PRN (15:20)
[2020-05-13] MEDS ORDERED: Communication Order-Pharmacy FS SCH (15:30)
--- NOTE | 2020-05-13 16:39 | HP ---
CHIEF COMPLAINT: Right leg pain. HISTORY OF PRESENT ILLNESS: Mr. Saba is a 60-year-old male, who has had a right segmental femur fracture. He was initially treated with open reduction and internal fixation. He had subsequent conversion to an intramedullary nail approximately 3 weeks ago. The patient has been active. He travels quite a bit. 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 He has been off his walker now for several weeks. Unfortunately, he developed some increased swelling and redness over his lateral thigh over the last 3 to 4 days. The patient has been feeling somewhat poorly. He denies having a fever. He presented to the emergency department today. He did start Bactrim 3 days ago, but had a little improvement. PAST MEDICAL HISTORY: 1. Hypertension. 2. Hyperlipidemia. 3. GERD. 4. History of alcohol abuse. PAST SURGICAL HISTORY: 1. Appendectomy. 2. Previous left ankle surgery. 3. Right shoulder surgery. 4. Right wrist surgery. 5. Previous right femur surgery as per HPI. SOCIAL HISTORY: The patient drinks alcohol. He denies drug use. He does chew tobacco. MEDICATIONS: 1. Amlodipine. 2. Lisinopril. 3. Statin. 4. Nexium. ALLERGIES: NO KNOWN DRUG ALLERGIES. IMAGING DATA: Right femur x-ray demonstrates intramedullary nail in place without any loosening or hardware complication. The patient's previous subtrochanteric fractures again visualized. PHYSICAL EXAMINATION: VITAL SIGNS: Stable. He is afebrile. He is normotensive. HEENT: Normocephalic, atraumatic. RESPIRATORY: Breathing comfortably. ABDOMEN: Soft, nontender, nondistended. CARDIOVASCULAR: Pulses palpable and regular. MUSCULOSKELETAL: The patient's right leg has healed wounds. There is some faint erythema and increased warmth along the middle incision of his thigh. The erythema extends approximately 10 cm in width. There is no palpable fluctuance. There is no palpable or expressible drainage. The distal and proximal incisions appear to be well healed. He is neurovascularly intact in his foot. IMPRESSION: Recent intramedullary nail of femur subtrochanteric fracture, now with cellulitis. PLAN: The patient will need to come to the hospital today for intravenous antibiotics. He has been on oral antibiotics, but has not improved. I am hopeful this is a superficial infection or a cellulitis and not indicative of a deep infection. We will monitor for response to the antibiotics. If he fails to respond, we may need to perform a surgical I and D. For now, we will hold off. He will continue vancomycin and Rocephin. He will have pain control. He can continue to mobilize. He will have aspirin for DVT prophylaxis. Job ID: [id number]
[2020-05-13] MEDS: Fentanyl 100 MCG/2 ML VIAL SLOW IVP PRN ×2 (17:17→21:51)
[2020-05-13 17:23] LABS: Lactic Acid 1.2 mmol/L (0.5-2.2)
[2020-05-13 17:35] LABS: SARS-CoV-2 MS2 Positive; SARS-CoV-2 N Gene Negative; SARS-CoV-2 S Gene Negative; SARS-CoV-2 by NAA Not Detected (NotDetected); SARS-CoV-2 orf1ab Negative
[2020-05-13] MEDS: Aspirin 81 mg Enteric Coated Tablet PO SCH (21:52)
[2020-05-14] MEDS: Fentanyl 100 MCG/2 ML VIAL SLOW IVP PRN ×5 (02:55→20:30)
[2020-05-14] MEDS: Vancomycin 1.5 GRAM/300 ML BAG 1.5 GM in Premix Bag 1 BAG IVPB SCH ×2 (02:55→14:00)
[2020-05-14] MEDS: Acetaminophen/Codeine 30-300mg Tablet PO PRN ×3 (05:39→18:16)
[2020-05-14 05:55] LABS: #Eosinphils 0.2 thou/uL (0.0-0.7); #Lymphocytes 1.8 thou/uL (1.20-3.40); #Monocytes 0.6 thou/uL (0.11-0.59); #Neutrophils 4.1 thou/uL (1.40-6.50); %Basophils 0.7 % (0.0-1.0); %Eosinophils 2.7 % (0.0-10.0); %Lymphocytes 26.4 % (21.0-51.0); %Monocytes 8.4 % (0.0-10.0); %Neutrophils 61.7 % (42.0-75.0); Hemoglobin 11.3 g/dL (14.0-18.0); Mean Corpuscular HGB CONC 35.1 g/dL (32.0-36.0); Mean Corpuscular Hemoglobin 33.8 pg (27.0-31.0); Mean Corpuscular Volume 96.3 fL (78.0-98.0); Platelet Count 165 thou/uL (130-400); RBC Distribution Width 16.9 % (11.5-14.5); Red Blood Cell (RBC) Count 3.33 mill/uL (4.70-6.10); White Blood Cell (WBC) Count 6.6 thou/uL (4.8-10.8)
[2020-05-14] MEDS: cefTRIAXone\\ROCEPHIN 2 GM in Sodium Chloride 0.9% 100 ML IVPB SCH (08:04)
[2020-05-14] MEDS: Aspirin 81 mg Enteric Coated Tablet PO SCH ×2 (08:05→20:31)
[2020-05-14] MEDS: traMADol HCl 50 MG TAB PO PRN (21:52)
[2020-05-15] MEDS: Fentanyl 100 MCG/2 ML VIAL SLOW IVP PRN ×5 (00:49→18:08)
[2020-05-15] MEDS: Vancomycin 1.5 GRAM/300 ML BAG 1.5 GM in Premix Bag 1 BAG IVPB SCH ×2 (00:49→16:40)
[2020-05-15] MEDS: Acetaminophen/Codeine 30-300mg Tablet PO PRN ×5 (02:43→19:59)
[2020-05-15] MEDS: cefTRIAXone\\ROCEPHIN 2 GM in Sodium Chloride 0.9% 100 ML IVPB SCH (08:20)
[2020-05-15] MEDS: Aspirin 81 mg Enteric Coated Tablet PO SCH ×2 (08:21→19:59)
--- NOTE | 2020-05-15 10:15 | ULT ---
Exam: Right lower extremity soft tissue ultrasound HISTORY: Evaluate for seroma versus abscess. COMPARISON: None. TECHNIQUE: Targeted sonographic imaging of the region of concern was performed. Static images are rev iewed FINDINGS: There is mixed echotexture focus in the region of concern with septation and heterogeneous echotexture measuring 7.7 x 1.8 x 3.4 cm. Findings may represent a complex or infected fluid collection versus a resolving hematoma. The lesion is amenable to ultrasound-guided aspiration. Aspir ation will be performed at the earliest convenience. Please refer to separate report IMPRESSION: Sonographic findings of a mixed echotexture focus as described above. Aspiration with ult rasound guidance will be performed. Transcribed Date/Time: 05/15/2020 10:23 AM
[2020-05-15] MEDS ORDERED: Sodium Bicarbonate 2.5 MEQ/5 ML VIAL ONE (10:57)
[2020-05-15] MEDS ORDERED: Lidocaine 1% PF 5 ML VIAL ONE (10:57)
--- NOTE | 2020-05-15 12:01 | ULT ---
Exam: Ultrasound guided soft tissue fine-needle aspiration HISTORY: Right lower extremity fluid collection. History of previous fracture with internal fixation repair. FINDINGS: Successful ultrasound-guided fine-needle aspiration. A total of 15 cc of brown-colored flui d was aspirated. No immediate or postprocedural complications TECHNIQUE: Consent obtained reformatory ultrasound-guided fine-needle aspiration of a complex fluid c ollection the right lateral side. Skin was prepped and draped in a sterile fashion. 1% lidocaine, buffered with sodium bicarbonate was used for local anesthesia. Under ultrasound guidance, 2 separate passes were made and a total of 13 cc of brown-colored fluid was aspirated. Material obtained and sent for evaluation. Patient tolerated the procedure. No immediate or postprocedural complications IMPRESSION: Successful fine-needle aspiration.
[2020-05-15 13:15] LABS: Vancomycin, Trough 12.7 ug/mL
[2020-05-15] MEDS: Vancomycin HCl 1.75 GM in Sodium Chloride 0.9% 500 ML IVPB SCH (14:57)
[2020-05-16] MEDS: Fentanyl 100 MCG/2 ML VIAL SLOW IVP PRN ×7 (00:18→20:08)
[2020-05-16] MEDS: Acetaminophen/Codeine 30-300mg Tablet PO PRN ×4 (00:19→20:07)
[2020-05-16] MEDS: Vancomycin HCl 1.75 GM in Sodium Chloride 0.9% 500 ML IVPB SCH ×2 (01:54→14:11)
[2020-05-16] MEDS: Aspirin 81 mg Enteric Coated Tablet PO SCH ×2 (08:24→20:07)
[2020-05-16] MEDS: cefTRIAXone\\ROCEPHIN 2 GM in Sodium Chloride 0.9% 100 ML IVPB SCH (08:24)
[2020-05-16] MEDS: traMADol HCl 50 MG TAB PO PRN (11:25)
[2020-05-17] MEDS: Acetaminophen/Codeine 30-300mg Tablet PO PRN ×4 (00:29→20:48)
[2020-05-17 01:57] LABS: Vancomycin, Trough 15.7 ug/mL
[2020-05-17] MEDS: Vancomycin HCl 1.75 GM in Sodium Chloride 0.9% 500 ML IVPB SCH (02:00)
[2020-05-17] MEDS: Fentanyl 100 MCG/2 ML VIAL SLOW IVP PRN (04:12)
[2020-05-17 07:51] LABS: #Basophils 0.1 thou/uL (0.0-0.2); #Eosinphils 0.4 thou/uL (0.0-0.7); #Lymphocytes 1.6 thou/uL (1.20-3.40); #Monocytes 0.6 thou/uL (0.11-0.59); #Neutrophils 3.9 thou/uL (1.40-6.50); %Basophils 1.3 % (0.0-1.0); %Eosinophils 5.5 % (0.0-10.0); %Lymphocytes 24.7 % (21.0-51.0); %Monocytes 9.7 % (0.0-10.0); %Neutrophils 58.7 % (42.0-75.0); Hemoglobin 11.5 g/dL (14.0-18.0); Mean Corpuscular HGB CONC 34.5 g/dL (32.0-36.0); Mean Corpuscular Volume 98.7 fL (78.0-98.0); Mean Platelet Volume 6.2 fL (7.4-10.4); Platelet Count 192 thou/uL (130-400); RBC Distribution Width 16.7 % (11.5-14.5); Red Blood Cell (RBC) Count 3.38 mill/uL (4.70-6.10); White Blood Cell (WBC) Count 6.6 thou/uL (4.8-10.8)
[2020-05-17] MEDS: Aspirin 81 mg Enteric Coated Tablet PO SCH ×2 (08:20→20:49)
[2020-05-17] MEDS: traMADol HCl 50 MG TAB PO PRN ×2 (10:45→18:31)
[2020-05-17] MEDS: Clindamycin/D5W 900 MG in Premix Bag 1 BAG IVPB SCH ×2 (13:22→21:00)
[2020-05-18] MEDS: Acetaminophen/Codeine 30-300mg Tablet PO PRN ×3 (01:20→10:28)
[2020-05-18] MEDS: Clindamycin/D5W 900 MG in Premix Bag 1 BAG IVPB SCH (05:12)
[2020-05-18] MEDS: Aspirin 81 mg Enteric Coated Tablet PO SCH (07:58)
[2020-05-18 10:44] VITALS: BP 148/89; TEMP 98.6
--- NOTE | 2020-06-05 11:13 | PQF ---
CLINICAL DOCUMENTATION CLARIFICATION FORM: Dear : Francois Bhandari MD Date / Time: 06/05/2020 Please exercise your independent, professional judgment in responding to the clarification form. Clinical indicators are provided on the bottom of this form for your review Please check appropriate box(es): [ x ] Cellulitis is a complication of recent ORIF surgery [ ] Cellulitis is not a complication of recent ORIF surgery [ ] Other diagnosis (Please specify if any) [ ] Unable to determine Physician Signature: Date/Time: For continuity of documentation, please document condition throughout progress notes and discharge summary. Thank You. To be completed by CDI/Coding staff for physician review: Present Clinical Indicators - Signs / Symptoms / Labs Results and Location in Medical Record [ ] CT / x-ray results [x] Worsening redness,swelling & warmth over right lateral leg at incision of previous surgical site ED provider report on 05/13 [x] Laceration of the right lateral thigh [id number] of erythema & warmth around the incision ED provider report on 05/13 [x] Erythema extends appropriately 10cm in width H&P on 05/13 [x] I am hopeful this is a superficial infection or a cellulits and not indicative of a deep infection H&P on 05/13 [x] Recent intramedullary nail of femur subtrochanteric fracture, now with cellulitis H&P on 05/13 [ ] Bleeding [ ] Infection Present Risk Factors Results and Location in Medical Record [x] Recent surgery S/P ORIF 3 weeks ago H&P on 05/13 [ ] Poor healing factors (advanced age / debility / obesity / chronic conditions) [ ] Recent use of antibiotics [ ] Present Treatments Results and Location in Medical Record [x] Vancomycin 1.25gm IV Medication on 05/13 [x] Rocephin 2gm Medication on 05/13 [x] Vancomycin 1.5gm IV Medication on 05/14,05/15 [ ] CDS/Property Master Signature: AAS Phone #: Date/Time: 06/05/2020 This is a permanent part of the Medical Record [facility]
== END 2020-05-18 13:15 | disposition home or self-care (01) | DRG 863 ==
LOC: ERS 12:52 → SURG A 16:53 → OBSVTOIN 16:53
PROVIDERS: ADMIT Orthopaedic Surgery; ATTEND Orthopaedic Surgery
PROC: 0J9P3ZX Drainage of Left Lower Leg Subcutaneous Tissue and Fascia, Percutaneous Approach, Diagnostic (ICD-10-PCS; principal; 2020-05-15)
DX: T81.40XA Infection following a procedure, unspecified, initial encounter (principal); L03.115 Cellulitis of right lower limb; Y83.9 Surgical procedure, unspecified as the cause of abnormal reaction of the patient, or of later complication, without mention of misadventure at the time of the procedure; E78.00 Pure hypercholesterolemia, unspecified; I10 Essential (primary) hypertension; K21.9 Gastro-esophageal reflux disease without esophagitis; Z20.828 Contact with and (suspected) exposure to other viral communicable diseases; Z90.89 Acquired absence of other organs; Z98.890 Other specified postprocedural states; Z79.899 Other long term (current) drug therapy; Z79.2 Long term (current) use of antibiotics
CPT/HCPCS: 36415; 76942; 76999; 80053; 80202; 83605; 85025; 85652; 86140; 87040; 87070; 87205; 87635; 96365; 96366; 96367; 96375; 96376; G0378; J0696; J3010; J3370; J3490; J7030; J7050; U0003

== ENCOUNTER 2020-10-19 12:09 | Inpatient (IN) | payer OTHER, BC ==
[2020-10-19] MEDS ORDERED: Fentanyl 100 MCG/2 ML VIAL ONE ×6 (12:30→17:49)
[2020-10-19 12:34] LABS: #Basophils 0.1 thou/uL (0.0-0.2); #Eosinphils 0.1 thou/uL (0.0-0.7); #Lymphocytes 1.9 thou/uL (1.20-3.40); #Monocytes 0.5 thou/uL (0.11-0.59); #Neutrophils 4.9 thou/uL (1.40-6.50); %Eosinophils 1.5 % (0.0-10.0); %Lymphocytes 25.5 % (21.0-51.0); %Monocytes 6.3 % (0.0-10.0); %Neutrophils 65.7 % (42.0-75.0); Hemoglobin 14.5 g/dL (14.0-18.0); Mean Corpuscular HGB CONC 33.9 g/dL (32.0-36.0); Mean Corpuscular Hemoglobin 33.4 pg (27.0-31.0); Mean Corpuscular Volume 98.5 fL (78.0-98.0); Mean Platelet Volume 7.7 fL (7.4-10.4); Platelet Count 184 thou/uL (130-400); RBC Distribution Width 12.7 % (11.5-14.5); Red Blood Cell (RBC) Count 4.35 mill/uL (4.70-6.10); White Blood Cell (WBC) Count 7.4 thou/uL (4.8-10.8)
[2020-10-19 12:41] LABS: Prothrombin Time 13.2 sec (12.0-14.7)
[2020-10-19 12:50] LABS: Anion Gap 12 mmol/L (10-20); BUN (Urea Nitrogen) 26 mg/dL (8.4-25.7); Calc. Creatinine Clearance 0 mL/min (70-130); Calcium 9.4 mg/dL (7.8-10.44); Carbon Dioxide 26 mmol/L (23-31); Chloride 104 mmol/L (98-107); Glucose 101 mg/dL (80-115); Potassium 4.3 mmol/L (3.5-5.1); Sodium 138 mmol/L (136-145)
[2020-10-19 12:56] LABS: PTT 22.6 sec (22.9-36.1)
[2020-10-19] MEDS ORDERED: CEFAZOLIN 2 GM in Premix Bag 1 BAG IVPB SCH (13:00)
[2020-10-19 13:51] LABS: SARS-CoV-2 NAA Rapid Test Not Detected (NotDetected)
[2020-10-19] MEDS ORDERED: Dextrose 5% in Water 1,000 ML IV PRN (14:37)
[2020-10-19] MEDS ORDERED: Dextrose 50% Abboject 50 ML SYRINGE SLOW IVP PRN (14:37)
[2020-10-19] MEDS ORDERED: hydrALAZINE 20 MG/ML VIAL SLOW IVP PRN (14:37)
[2020-10-19] MEDS ORDERED: Ondansetron ODT 4 MG TAB PO PRN (14:37)
[2020-10-19] MEDS ORDERED: Cyclobenzaprine 10 MG TAB PO PRN (14:41)
[2020-10-19] MEDS ORDERED: Ketorolac Tromethamine 30 MG/ML VIAL ONE (15:23)
[2020-10-19] MEDS ORDERED: Glycopyrrolate 0.2 MG/ML 5 ML SYRINGE ONE (15:23)
[2020-10-19] MEDS ORDERED: Ondansetron PF 4 MG/2 ML Vial ONE (15:23)
[2020-10-19] MEDS ORDERED: PROPOFOL 200 MG/20 ML VIAL ONE (15:23)
[2020-10-19] MEDS ORDERED: ePHEDrine Sulfate 50 MG/10 ML VIAL ONE (15:23)
[2020-10-19] MEDS ORDERED: Succinylcholine 200 MG/10 ml SYRINGE FS ONE (15:23)
[2020-10-19] MEDS ORDERED: Lidocaine 1% PF 5 ML VIAL ONE (15:23)
[2020-10-19] MEDS ORDERED: Dexamethasone 20 MG/5 ML VIAL ONE (15:23)
[2020-10-19] MEDS ORDERED: PHENYLEPHRINE-NS 100 MCG/ML 10 ML SYRINGE ONE (15:23)
[2020-10-19] MEDS ORDERED: HYDROmorphone 0.5 MG/0.5 ML SYRINGE ONE ×2 (17:26→18:03)
[2020-10-19] MEDS ORDERED: HYDROmorphone 0.5 MG/0.5 ML SYRINGE SLOW IVP SCH (18:45)
[2020-10-19] MEDS ORDERED: HYDROmorphone 0.5 MG/0.5 ML SYRINGE SLOW IVP PRN (18:55)
[2020-10-19] MEDS: Acetaminophen 325 MG TAB PO SCH ×2 (19:16→19:42)
[2020-10-19] MEDS: Ibuprofen 200 MG TAB PO SCH ×2 (19:17→22:11)
[2020-10-19] MEDS: traMADol HCl 50 MG TAB PO PRN (19:40)
[2020-10-19] MEDS: traMADol HCl 50 MG TAB PO SCH ×2 (19:40→23:22)
[2020-10-19] MEDS: Ascorbic Acid 500 mg Chewable Tablet PO SCH (19:41)
[2020-10-19] MEDS: Famotidine 20 MG TAB PO SCH (19:42)
[2020-10-19 19:58] VITALS: BMI 29.2
[2020-10-19] MEDS: Lactated Ringer's 1,000 ML IV SCH ×2 (21:15→23:23)
[2020-10-19] MEDS: traZODone HCl 50 MG TAB PO SCH (22:12)
[2020-10-19] MEDS: Oxazepam 10 MG CAP PO SCH (22:12)
[2020-10-19] MEDS: CEFAZOLIN 2 GM in Premix Bag 1 BAG IVPB SCH (23:22)
[2020-10-20] MEDS: Acetaminophen 325 MG TAB PO SCH ×4 (02:10→21:15)
[2020-10-20] MEDS: traMADol HCl 50 MG TAB PO PRN ×3 (02:10→21:14)
[2020-10-20 05:24] LABS: #Lymphocytes 0.8 thou/uL (1.20-3.40); #Monocytes 0.2 thou/uL (0.11-0.59); #Neutrophils 8.2 thou/uL (1.40-6.50); %Basophils 0.3 % (0.0-1.0); %Eosinophils 0.1 % (0.0-10.0); %Lymphocytes 8.3 % (21.0-51.0); %Monocytes 2.2 % (0.0-10.0); %Neutrophils 89.1 % (42.0-75.0); Hemoglobin 11.3 g/dL (14.0-18.0); Mean Corpuscular HGB CONC 32.9 g/dL (32.0-36.0); Mean Corpuscular Hemoglobin 32.8 pg (27.0-31.0); Mean Corpuscular Volume 99.8 fL (78.0-98.0); Platelet Count 167 thou/uL (130-400); RBC Distribution Width 12.7 % (11.5-14.5); Red Blood Cell (RBC) Count 3.43 mill/uL (4.70-6.10); White Blood Cell (WBC) Count 9.2 thou/uL (4.8-10.8)
[2020-10-20 05:30] LABS: Anion Gap 11 mmol/L (10-20); BUN (Urea Nitrogen) 24 mg/dL (8.4-25.7); Calc. Creatinine Clearance 84 mL/min (70-130); Carbon Dioxide 24 mmol/L (23-31); Chloride 102 mmol/L (98-107); Glucose 184 mg/dL (80-115); Potassium 5.1 mmol/L (3.5-5.1); Sodium 132 mmol/L (136-145)
[2020-10-20] MEDS: Ibuprofen 200 MG TAB PO SCH ×3 (05:50→23:32)
[2020-10-20] MEDS: traMADol HCl 50 MG TAB PO SCH ×4 (05:51→23:32)
[2020-10-20] MEDS: Oxazepam 10 MG CAP PO SCH ×3 (05:51→21:15)
[2020-10-20] MEDS: CEFAZOLIN 2 GM in Premix Bag 1 BAG IVPB SCH ×3 (08:26→23:38)
[2020-10-20] MEDS: Ferrous Sulfate 325 MG TAB PO SCH (08:31)
[2020-10-20] MEDS: Ascorbic Acid 500 mg Chewable Tablet PO SCH ×2 (08:31→21:15)
[2020-10-20] MEDS: Thiamine 100 MG TAB PO SCH (08:31)
[2020-10-20] MEDS: Propranolol HCl 20 MG TAB PO SCH (08:32)
[2020-10-20] MEDS: Amlodipine 5 MG TAB PO SCH (08:32)
[2020-10-20] MEDS: Polyethylene Glycol 3350 17 GM Packet PO SCH (08:32)
[2020-10-20] MEDS ORDERED: Thiamine 100 MG TAB PO SCH (09:00)
[2020-10-20] MEDS: Lactated Ringer's 1,000 ML IV SCH (15:24)
[2020-10-20] MEDS: Famotidine 20 MG TAB PO SCH (21:14)
[2020-10-20] MEDS: Aspirin 81 mg Enteric Coated Tablet PO SCH (21:14)
[2020-10-20] MEDS: traZODone HCl 50 MG TAB PO SCH (21:14)
[2020-10-21] MEDS: Acetaminophen 325 MG TAB PO SCH ×2 (03:36→08:46)
[2020-10-21] MEDS: Oxazepam 10 MG CAP PO SCH (05:27)
[2020-10-21] MEDS: traMADol HCl 50 MG TAB PO SCH ×2 (05:28→13:05)
[2020-10-21 06:27] LABS: #Basophils 0.1 thou/uL (0.0-0.2); #Eosinphils 0.2 thou/uL (0.0-0.7); #Lymphocytes 2.2 thou/uL (1.20-3.40); #Monocytes 0.4 thou/uL (0.11-0.59); #Neutrophils 5.2 thou/uL (1.40-6.50); %Basophils 0.8 % (0.0-1.0); %Lymphocytes 27.7 % (21.0-51.0); %Monocytes 4.6 % (0.0-10.0); %Neutrophils 64.9 % (42.0-75.0); Hemoglobin 10.1 g/dL (14.0-18.0); Mean Corpuscular HGB CONC 33.3 g/dL (32.0-36.0); Mean Corpuscular Hemoglobin 33.3 pg (27.0-31.0); Mean Platelet Volume 8.5 fL (7.4-10.4); Platelet Count 157 thou/uL (130-400); RBC Distribution Width 12.6 % (11.5-14.5); Red Blood Cell (RBC) Count 3.03 mill/uL (4.70-6.10); White Blood Cell (WBC) Count 8.1 thou/uL (4.8-10.8)
[2020-10-21] MEDS: Ibuprofen 200 MG TAB PO SCH (07:50)
[2020-10-21] MEDS: Ascorbic Acid 500 mg Chewable Tablet PO SCH (08:45)
[2020-10-21] MEDS: Aspirin 81 mg Enteric Coated Tablet PO SCH (08:45)
[2020-10-21] MEDS: Ferrous Sulfate 325 MG TAB PO SCH (08:45)
[2020-10-21] MEDS: Propranolol HCl 20 MG TAB PO SCH (08:46)
[2020-10-21] MEDS: Thiamine 100 MG TAB PO SCH (08:46)
[2020-10-21] MEDS: Polyethylene Glycol 3350 17 GM Packet PO SCH ×2 (08:47→08:48)
[2020-10-21] MEDS: Amlodipine 5 MG TAB PO SCH (08:47)
[2020-10-21 12:01] VITALS: BP 115/69; TEMP 98.2
== END 2020-10-21 15:20 | disposition home or self-care (01) | DRG 494 ==
LOC: ERS 12:09 → SDC 14:06 → SURG B 14:37
PROVIDERS: ADMIT Surgery; ATTEND Surgery
PROC: 0QSJ06Z Reposition Right Fibula with Intramedullary Internal Fixation Device, Open Approach (ICD-10-PCS; principal; 2020-10-19)
PROC: 0QSG06Z Reposition Right Tibia with Intramedullary Internal Fixation Device, Open Approach (ICD-10-PCS; 2020-10-19)
DX: S82.144 Nondisplaced bicondylar fracture of right tibia (principal); S82.401B Unspecified fracture of shaft of right fibula, initial encounter for open fracture type I or II; I10 Essential (primary) hypertension; E78.5 Hyperlipidemia, unspecified; K21.9 Gastro-esophageal reflux disease without esophagitis; V80.010A Animal-rider injured by fall from or being thrown from horse in noncollision accident, initial encounter; Y93.52 Activity, horseback riding; Z90.49 Acquired absence of other specified parts of digestive tract; Z79.82 Long term (current) use of aspirin
CPT/HCPCS: 36415; 71045; 72170; 76000; 80048; 85025; 85610; 85730; 86850; 86900; 86901; 96374; 96376; C1713; G0390; J0690; J1100; J1170; J1885; J2405; J2704; J3010; U0002

== ENCOUNTER 2020-10-29 06:12 | Inpatient (IN) | payer BC ==
[2020-10-29] MEDS ORDERED: Ondansetron PF 4 MG/2 ML Vial IVP PRN (08:57)
[2020-10-29] MEDS ORDERED: hydrALAZINE 20 MG/ML VIAL SLOW IVP PRN (08:57)
[2020-10-29] MEDS ORDERED: Dextrose 5% in Water 1,000 ML IV PRN (08:57)
[2020-10-29] MEDS ORDERED: Dextrose 50% Abboject 50 ML SYRINGE SLOW IVP PRN (08:57)
[2020-10-29] MEDS: Thiamine 100 MG TAB PO SCH (09:00)
[2020-10-29] MEDS: Folic Acid 1 MG TAB PO SCH (09:00)
[2020-10-29] MEDS ORDERED: Sodium Chloride 0.9% 1,000 ML IV SCH (09:00)
[2020-10-29] MEDS: Famotidine 20 MG TAB PO SCH ×2 (09:00→23:00)
[2020-10-29] MEDS: Multivitamin W/ Minerals 1 TAB PO SCH (09:00)
[2020-10-29] MEDS ORDERED: Acetaminophen 500 MG TAB PO SCH (09:15)
[2020-10-29] MEDS: Acetaminophen 500 MG TAB PO SCH ×3 (11:20→23:00)
[2020-10-29 11:48] VITALS: BMI 29.5
[2020-10-29] MEDS: Oxazepam 10 MG CAP PO SCH ×2 (14:09→20:06)
[2020-10-29] MEDS ORDERED: Haloperidol Lactate 5 MG/ML VIAL SLOW IVP SCH (14:15)
[2020-10-29] MEDS: Sodium Chloride 0.9% 1,000 ML IV SCH ×2 (14:52→18:18)
[2020-10-29 16:51] LABS: Amphetamine Not Detected (NotDetected); Barbiturates Screen Not Detected (NotDetected); Benzodiazepine Screen Detected (NotDetected); Cocaine Metabolite Screen Not Detected (NotDetected); Medtox Reader # READER 4; Methadone Not Detected (NotDetected); Methamphetamine Detected (NotDetected); Opiate Screen Not Detected (NotDetected); Oxycodone Screen Not Detected (NotDetected); Phencyclidine (PCP) Not Detected (NotDetected); THC/Cannabinoid Screen Not Detected (NotDetected); Tricyclic Screen Not Detected (NotDetected)
[2020-10-29] MEDS: Cyclobenzaprine 10 MG TAB PO PRN (16:51)
[2020-10-29 16:52] LABS: Medtox Control Line Valid? VALID (VALID)
[2020-10-29] MEDS: Senokot S 8.6-50 MG TAB PO SCH (23:00)
[2020-10-30] MEDS ORDERED: Haloperidol Lactate 5 MG/ML VIAL IM SCH (01:00)
[2020-10-30 05:05] LABS: #Eosinphils 0.4 thou/uL (0.0-0.7); #Lymphocytes 1.3 thou/uL (1.20-3.40); #Monocytes 0.5 thou/uL (0.11-0.59); #Neutrophils 5.6 thou/uL (1.40-6.50); %Basophils 0.5 % (0.0-1.0); %Eosinophils 4.5 % (0.0-10.0); %Monocytes 6.1 % (0.0-10.0); %Neutrophils 71.9 % (42.0-75.0); Hemoglobin 9.3 g/dL (14.0-18.0); Mean Corpuscular HGB CONC 33.8 g/dL (32.0-36.0); Mean Corpuscular Hemoglobin 33.3 pg (27.0-31.0); Mean Corpuscular Volume 98.6 fL (78.0-98.0); Mean Platelet Volume 7.1 fL (7.4-10.4); Platelet Count 201 thou/uL (130-400); RBC Distribution Width 13.2 % (11.5-14.5); White Blood Cell (WBC) Count 7.8 thou/uL (4.8-10.8)
[2020-10-30] MEDS: Oxazepam 10 MG CAP PO SCH ×4 (05:20→21:02)
[2020-10-30] MEDS: Cyclobenzaprine 10 MG TAB PO PRN (05:21)
[2020-10-30] MEDS: Acetaminophen 500 MG TAB PO SCH ×4 (05:23→21:01)
[2020-10-30 05:25] LABS: Anion Gap 14 mmol/L (10-20); BUN (Urea Nitrogen) 9 mg/dL (8.4-25.7); Calc. Creatinine Clearance 112 mL/min (70-130); Calcium 8.8 mg/dL (7.8-10.44); Carbon Dioxide 27 mmol/L (23-31); Chloride 102 mmol/L (98-107); Glucose 86 mg/dL (80-115); Magnesium 2.1 mg/dL (1.6-2.6); Phosphorus 3.4 mg/dL (2.3-4.7); Potassium 3.5 mmol/L (3.5-5.1); Sodium 139 mmol/L (136-145)
[2020-10-30] MEDS: Sodium Chloride 0.9% 1,000 ML IV SCH (06:47)
[2020-10-30] MEDS: Ferrous Sulfate 325 MG TAB PO SCH (08:56)
[2020-10-30] MEDS: Enoxaparin Sodium 40 MG/0.4 ML SYRINGE SC SCH (08:56)
[2020-10-30] MEDS: Folic Acid 1 MG TAB PO SCH (08:56)
[2020-10-30] MEDS: Polyethylene Glycol 3350 17 GM Packet PO SCH (08:57)
[2020-10-30] MEDS: Amlodipine 5 MG TAB PO SCH (08:57)
[2020-10-30] MEDS: Multivitamin W/ Minerals 1 TAB PO SCH (08:57)
[2020-10-30] MEDS: Senokot S 8.6-50 MG TAB PO SCH ×2 (08:57→21:02)
[2020-10-30] MEDS: Thiamine 100 MG TAB PO SCH (08:57)
[2020-10-30] MEDS: Propranolol 10 MG TAB PO SCH (09:03)
[2020-10-30] MEDS: traMADol HCl 50 MG TAB PO PRN ×2 (10:08→17:24)
[2020-10-30] MEDS: Cephalexin 250 MG CAP PO SCH ×2 (12:21→17:24)
[2020-10-30 14:50] LABS: Bacteria/HPF None Seen HPF (None Seen); Bilirubin Negative (Negative); Blood, Urine Negative (Negative); Clarity Clear (Clear); Glucose, Urine (Dipstick) Normal (Negative); Ketone, Urine Negative (Negative); Leukocyte Negative Leu/uL (Negative); Nitrite Negative (Negative); Protein, Urine (Dipstick) 20 mg/dL (Neg-Trace); RBC/HPF 0-3 HPF (0-3); Specific Gravity, Urine 1.011 (1.002-1.036); Squamous Epithelial None Seen HPF (0-3); Urobilinogen Normal mg/dL (Less than 2); WBC/HPF 0-3 HPF (0-3); pH, Urine 6.5 (5.0-9.0)
[2020-10-30 14:51] LABS: Urine Culture Reflex No No
[2020-10-30] MEDS: Multivitamins, Adult 10 ML, Folic Acid 1 MG in Dextrose 5 %-0.45 % NaCl 1,000 ML IV SCH (15:18)
[2020-10-30] MEDS: Thiamine HCl 200 MG/2 ML VIAL SLOW IVP SCH (16:31)
[2020-10-30] MEDS ORDERED: hydrALAZINE 20 MG/ML VIAL SLOW IVP PRN (19:07)
[2020-10-30] MEDS ORDERED: Lactated Ringer's 1,000 ML IV SCH (19:15)
[2020-10-30] MEDS: Ibuprofen 200 MG TAB PO SCH (21:01)
[2020-10-31] MEDS: Cephalexin 250 MG CAP PO SCH ×5 (01:18→23:10)
[2020-10-31] MEDS: Oxazepam 10 MG CAP PO SCH ×4 (01:18→23:10)
[2020-10-31] MEDS: Potassium Chloride 10 MEQ in Dextrose 5%-Lactated Ringers 1,000 ML IV SCH ×3 (01:18→20:26)
[2020-10-31] MEDS: Ibuprofen 200 MG TAB PO SCH ×4 (01:19→20:25)
[2020-10-31] MEDS: Acetaminophen 500 MG TAB PO SCH ×4 (05:53→23:14)
[2020-10-31 06:09] LABS: #Eosinphils 0.3 thou/uL (0.0-0.7); #Lymphocytes 1.3 thou/uL (1.20-3.40); #Monocytes 0.6 thou/uL (0.11-0.59); #Neutrophils 7.2 thou/uL (1.40-6.50); %Basophils 0.4 % (0.0-1.0); %Eosinophils 3.3 % (0.0-10.0); %Lymphocytes 14.2 % (21.0-51.0); %Monocytes 5.9 % (0.0-10.0); %Neutrophils 76.3 % (42.0-75.0); Hemoglobin 9.4 g/dL (14.0-18.0); Mean Corpuscular Hemoglobin 31.4 pg (27.0-31.0); Mean Corpuscular Volume 98.1 fL (78.0-98.0); Mean Platelet Volume 6.8 fL (7.4-10.4); Platelet Count 197 thou/uL (130-400); RBC Distribution Width 13.2 % (11.5-14.5); Red Blood Cell (RBC) Count 2.97 mill/uL (4.70-6.10); White Blood Cell (WBC) Count 9.4 thou/uL (4.8-10.8)
[2020-10-31 06:42] LABS: ALT (SGPT) 17 U/L (8-55); AST (SGOT) 29 U/L (5-34); Albumin 3.2 g/dL (3.4-4.8); Alkaline Phosphatase 79 U/L (40-110); Anion Gap 16 mmol/L (10-20); BUN (Urea Nitrogen) 14 mg/dL (8.4-25.7); Bilirubin, Total 0.5 mg/dL (0.2-1.2); Calc. Creatinine Clearance 112 mL/min (70-130); Calcium 8.8 mg/dL (7.8-10.44); Carbon Dioxide 23 mmol/L (23-31); Chloride 107 mmol/L (98-107); Globulin 2.4 g/dL (2.4-3.5); Glucose 90 mg/dL (80-115); Potassium 3.6 mmol/L (3.5-5.1); Protein, Total 5.6 g/dL (5.8-8.1); Sodium 142 mmol/L (136-145)
[2020-10-31] MEDS ORDERED: Oxazepam 10 MG CAP PO SCH ×3 (08:00→14:00)
[2020-10-31] MEDS: Enoxaparin Sodium 40 MG/0.4 ML SYRINGE SC SCH (09:13)
[2020-10-31] MEDS: Folic Acid 1 MG TAB PO SCH (09:14)
[2020-10-31] MEDS: Propranolol 10 MG TAB PO SCH (09:14)
[2020-10-31] MEDS: Multivitamin W/ Minerals 1 TAB PO SCH (09:15)
[2020-10-31] MEDS: Amlodipine 5 MG TAB PO SCH (09:16)
[2020-10-31] MEDS: Ferrous Sulfate 325 MG TAB PO SCH (09:16)
[2020-10-31] MEDS: Senokot S 8.6-50 MG TAB PO SCH ×2 (09:19→22:48)
[2020-10-31] MEDS: Polyethylene Glycol 3350 17 GM Packet PO SCH (09:19)
[2020-10-31] MEDS: Thiamine HCl 200 MG/2 ML VIAL SLOW IVP SCH (14:25)
[2020-10-31] MEDS: Multivitamins, Adult 10 ML, Folic Acid 1 MG in Dextrose 5 %-0.45 % NaCl 1,000 ML IV SCH (14:25)
[2020-10-31] MEDS: traZODone HCl 50 MG TAB PO SCH (20:26)
[2020-10-31] MEDS ORDERED: Non-Formulary Item 1 EACH (Trazodone Hcl [Trazodone Hcl] 100 MG Tablet) PO SCH (21:00)
[2020-11-01] MEDS: Ibuprofen 200 MG TAB PO SCH ×4 (02:47→20:30)
[2020-11-01] MEDS: Acetaminophen 500 MG TAB PO SCH ×4 (05:12→23:42)
[2020-11-01] MEDS: Potassium Chloride 10 MEQ in Dextrose 5%-Lactated Ringers 1,000 ML IV SCH (05:18)
[2020-11-01] MEDS: Oxazepam 10 MG CAP PO SCH ×4 (05:18→23:47)
[2020-11-01] MEDS: Cephalexin 250 MG CAP PO SCH ×4 (05:18→23:47)
[2020-11-01] MEDS: Folic Acid 1 MG TAB PO SCH (08:57)
[2020-11-01] MEDS: Amlodipine 10 MG TAB PO SCH (08:58)
[2020-11-01] MEDS: Enoxaparin Sodium 40 MG/0.4 ML SYRINGE SC SCH (08:58)
[2020-11-01] MEDS: Propranolol 10 MG TAB PO SCH (08:58)
[2020-11-01] MEDS: Ferrous Sulfate 325 MG TAB PO SCH (08:58)
[2020-11-01] MEDS: Polyethylene Glycol 3350 17 GM Packet PO SCH (08:59)
[2020-11-01] MEDS ORDERED: Non-Formulary Item 1 EACH (Esomeprazole Magnesium [Nexium 24hr] 20 MG Tablet.Dr) PO SCH (09:00)
[2020-11-01] MEDS: Multivitamin W/ Minerals 1 TAB PO SCH (09:02)
[2020-11-01] MEDS: Senokot S 8.6-50 MG TAB PO SCH ×2 (09:02→23:42)
[2020-11-01] MEDS: Multivitamins, Adult 10 ML, Folic Acid 1 MG in Dextrose 5 %-0.45 % NaCl 1,000 ML IV SCH (15:22)
[2020-11-01] MEDS: Thiamine HCl 200 MG/2 ML VIAL SLOW IVP SCH (15:23)
[2020-11-01] MEDS: Cyclobenzaprine 10 MG TAB PO PRN (15:33)
[2020-11-01] MEDS ORDERED: Melatonin 3 MG TAB PO PRN (20:00)
[2020-11-01] MEDS: traZODone HCl 50 MG TAB PO SCH (20:31)
[2020-11-02] MEDS ORDERED: Haloperidol Lactate 5 MG/ML VIAL IM SCH (01:15)
[2020-11-02] MEDS: Acetaminophen 500 MG TAB PO SCH ×4 (02:03→23:51)
[2020-11-02] MEDS: Ibuprofen 200 MG TAB PO SCH ×4 (02:03→20:46)
[2020-11-02] MEDS: Cephalexin 250 MG CAP PO SCH ×4 (06:08→23:38)
[2020-11-02] MEDS: Oxazepam 10 MG CAP PO SCH ×4 (06:08→23:38)
[2020-11-02] MEDS: Propranolol 10 MG TAB PO SCH (09:27)
[2020-11-02] MEDS: Ferrous Sulfate 325 MG TAB PO SCH (09:28)
[2020-11-02] MEDS: Folic Acid 1 MG TAB PO SCH (09:28)
[2020-11-02] MEDS: Amlodipine 10 MG TAB PO SCH (09:28)
[2020-11-02] MEDS: Polyethylene Glycol 3350 17 GM Packet PO SCH (09:28)
[2020-11-02] MEDS: Senokot S 8.6-50 MG TAB PO SCH ×2 (09:28→23:50)
[2020-11-02] MEDS: Multivitamin W/ Minerals 1 TAB PO SCH (09:29)
[2020-11-02] MEDS: Enoxaparin Sodium 40 MG/0.4 ML SYRINGE SC SCH (09:30)
[2020-11-02] MEDS: carBAMazepine 200 MG TAB PO SCH ×2 (11:39→18:10)
[2020-11-02] MEDS: traZODone HCl 50 MG TAB PO SCH (20:46)
[2020-11-03] MEDS: Ibuprofen 200 MG TAB PO SCH ×3 (04:11→14:03)
[2020-11-03] MEDS: Acetaminophen 500 MG TAB PO SCH ×3 (04:11→17:06)
[2020-11-03] MEDS: Cephalexin 250 MG CAP PO SCH ×3 (05:37→17:07)
[2020-11-03] MEDS: Oxazepam 10 MG CAP PO SCH ×3 (05:37→17:07)
[2020-11-03] MEDS: Propranolol 10 MG TAB PO SCH (08:34)
[2020-11-03] MEDS: carBAMazepine 200 MG TAB PO SCH ×3 (08:34→17:06)
[2020-11-03] MEDS: Multivitamin W/ Minerals 1 TAB PO SCH (08:34)
[2020-11-03] MEDS: Polyethylene Glycol 3350 17 GM Packet PO SCH (08:34)
[2020-11-03] MEDS: Folic Acid 1 MG TAB PO SCH (08:34)
[2020-11-03] MEDS: Ferrous Sulfate 325 MG TAB PO SCH (08:34)
[2020-11-03] MEDS: Senokot S 8.6-50 MG TAB PO SCH ×2 (08:35→20:13)
[2020-11-03] MEDS: Amlodipine 10 MG TAB PO SCH (08:35)
[2020-11-03] MEDS: Enoxaparin Sodium 40 MG/0.4 ML SYRINGE SC SCH (09:31)
[2020-11-03] MEDS: traZODone HCl 50 MG TAB PO SCH (20:13)
[2020-11-04] MEDS: Ibuprofen 200 MG TAB PO SCH ×5 (01:38→20:55)
[2020-11-04] MEDS: Acetaminophen 500 MG TAB PO SCH ×5 (01:38→20:55)
[2020-11-04] MEDS: Cephalexin 250 MG CAP PO SCH ×3 (01:44→12:53)
[2020-11-04] MEDS: Oxazepam 10 MG CAP PO SCH ×5 (01:44→23:29)
[2020-11-04] MEDS: Cyclobenzaprine 10 MG TAB PO PRN ×2 (03:13→12:56)
[2020-11-04] MEDS: Enoxaparin Sodium 40 MG/0.4 ML SYRINGE SC SCH (08:36)
[2020-11-04] MEDS: Ferrous Sulfate 325 MG TAB PO SCH (08:37)
[2020-11-04] MEDS: Amlodipine 10 MG TAB PO SCH (08:37)
[2020-11-04] MEDS: Folic Acid 1 MG TAB PO SCH (08:37)
[2020-11-04] MEDS: Multivitamin W/ Minerals 1 TAB PO SCH (08:37)
[2020-11-04] MEDS: Propranolol 10 MG TAB PO SCH (08:37)
[2020-11-04] MEDS: Senokot S 8.6-50 MG TAB PO SCH ×2 (08:37→20:54)
[2020-11-04] MEDS: carBAMazepine 200 MG TAB PO SCH ×3 (08:37→17:01)
[2020-11-04] MEDS: Polyethylene Glycol 3350 17 GM Packet PO SCH (08:42)
[2020-11-04] MEDS: traZODone HCl 50 MG TAB PO SCH (20:55)
[2020-11-05] MEDS: Ibuprofen 200 MG TAB PO SCH ×3 (01:53→14:46)
[2020-11-05] MEDS: Oxazepam 10 MG CAP PO SCH ×2 (05:01→12:01)
[2020-11-05] MEDS: Acetaminophen 500 MG TAB PO SCH ×2 (05:02→10:35)
[2020-11-05] MEDS: Amlodipine 10 MG TAB PO SCH (08:49)
[2020-11-05] MEDS: Enoxaparin Sodium 40 MG/0.4 ML SYRINGE SC SCH (08:49)
[2020-11-05] MEDS: carBAMazepine 200 MG TAB PO SCH ×2 (08:49→12:01)
[2020-11-05] MEDS: Multivitamin W/ Minerals 1 TAB PO SCH (08:49)
[2020-11-05] MEDS: Ferrous Sulfate 325 MG TAB PO SCH (08:50)
[2020-11-05] MEDS: Senokot S 8.6-50 MG TAB PO SCH (08:50)
[2020-11-05] MEDS: Folic Acid 1 MG TAB PO SCH (08:51)
[2020-11-05] MEDS: Propranolol 10 MG TAB PO SCH (08:51)
[2020-11-05] MEDS: Polyethylene Glycol 3350 17 GM Packet PO SCH (09:00)
[2020-11-05 15:05] VITALS: BP 148/86; TEMP 98.7
== END 2020-11-05 17:05 | disposition home or self-care (01) | DRG 862 ==
LOC: INTOOBSV 07:03 → SURG A 07:03 → OBSVTOIN 10-31 13:12 → SURG A 11-02 19:26
PROVIDERS: ADMIT Specialist; ATTEND Specialist
DX: T81.49XA Infection following a procedure, other surgical site, initial encounter (principal); G92 Toxic encephalopathy; F10.139 Alcohol abuse with withdrawal, unspecified; R44.3 Hallucinations, unspecified; T40.421A Poisoning by tramadol, accidental (unintentional), initial encounter; Z20.822 Contact with and (suspected) exposure to COVID-19; I10 Essential (primary) hypertension; E78.5 Hyperlipidemia, unspecified; K21.9 Gastro-esophageal reflux disease without esophagitis; F17.220 Nicotine dependence, chewing tobacco, uncomplicated; Y83.8 Other surgical procedures as the cause of abnormal reaction of the patient, or of later complication, without mention of misadventure at the time of the procedure; Z90.49 Acquired absence of other specified parts of digestive tract; Z98.890 Other specified postprocedural states; Z78.1 Physical restraint status; Z91.19 Patient's noncompliance with other medical treatment and regimen
CPT/HCPCS: 36415; 70450; 71045; 80048; 80053; 80306; 81001; 82140; 82607; 82746; 83735; 84100; 85025; 87040; 96372; 96374; 96375; 96376; G0378; J1630; J1650; J3411; J3480; J7042

== ENCOUNTER 2021-05-24 14:09 | Outpatient (CLI) | payer BC | END 2021-05-24 14:10 | disposition home or self-care (01) | LOC: BICCT 14:09 | PROVIDERS: ATTEND Orthopaedic Surgery | DX: S82.1 Fracture of upper end of tibia (principal) ==

== ENCOUNTER 2025-05-07 13:46 | Inpatient (IN) | payer BC, MEDICARE ==
[2025-05-07 14:17] LABS: #Basophils Less than 0.03 10x3/uL (0.0-0.2); #Eosinophils Less than 0.03 10x3/uL (0.0-0.7); #Monocytes 0.87 10x3/uL (0.11-0.59); #Neutrophils 16.01 10x3/uL (1.40-6.50); %Basophils 0.1 % (0.0-1.0); %Eosinophils 0.1 % (0.0-10.0); %Lymphocytes 5.9 % (21.0-51.0); %Monocytes 4.8 % (0.0-10.0); %Neutrophils 88.5 % (42.0-75.0); Hematocrit 40.5 % (42.0-52.0); Hemoglobin 13.8 g/dL (14.0-18.0); Mean Corpuscular Hemoglobin 32.8 pg (27.0-31.0); Mean Corpuscular Volume 96.2 fL (78.0-98.0); Platelet Count 152 10x3/uL (130-400); Red Blood Cell (RBC) Count 4.21 mill/uL (4.70-6.10); White Blood Cell (WBC) Count 18.09 10x3/uL (4.8-10.8)
[2025-05-07 14:42] LABS: ALT (SGPT) 95 U/L (Less than 45); AST (SGOT) 84 U/L (11-34); Albumin 4.3 g/dL (3.1-4.5); Alkaline Phosphatase 47 U/L (40-110); Anion Gap 19 mmol/L (10-20); BUN (Urea Nitrogen) 41 mg/dL (8.4-25.7); Bilirubin, Total 1.3 mg/dL (0.3-1.2); Calc. Creatinine Clearance 0 mL/min (70-130); Calcium 10.0 mg/dL (7.8-10.44); Carbon Dioxide 24 mmol/L (23-31); Chloride 100 mmol/L (98-107); Globulin 2.7 g/dL (2.4-3.5); Glucose 109 mg/dL (80-115); Potassium 4.2 mmol/L (3.5-5.1); Sodium 139 mmol/L (136-145)
[2025-05-07 14:43] LABS: Acetaminophen Less than 10 mcg/mL (Less than 10); Salicylate Less than 8.0 mg/dL (Less than 8.0)
[2025-05-07 15:48] LABS: Bacteria/HPF None Seen HPF (None Seen); CAUTI Indications for Culture Alt mental st,lethar; Glucose, Urine (Dipstick) Normal (Negative); Leukocyte Negative Leu/uL (Negative); Protein, Urine (Dipstick) Negative (Neg-Trace); RBC/HPF 0-3 HPF (0-3); Specific Gravity, Urine 1.013 (1.002-1.036); WBC/HPF 0-3 HPF (0-3)
[2025-05-07 15:51] LABS: Urine Culture Reflex No No
[2025-05-07 15:57] LABS: Cocaine Metabolite Screen Negative (Negative); THC/Cannabinoid Screen PRELIM POSITIVE (Negative); Tricyclic Screen Negative (Negative)
[2025-05-07] MEDS ORDERED: Magnesium 2 GM/50 ML BAG (IN WATER) ONE (16:38)
[2025-05-07 18:51] VITALS: BMI 27.4
[2025-05-08] MEDS: Ketorolac Tromethamine 30 MG (1 mL) VIAL IVP PRN (04:38)
[2025-05-08] MEDS: Thiamine HCl 500 MG, Admixture Fee 1 EACH in Sodium Chloride 0.9% 100 ML IVPB SCH (05:12)
[2025-05-08 05:25] LABS: #Basophils Less than 0.03 10x3/uL (0.0-0.2); #Eosinophils 0.07 10x3/uL (0.0-0.7); #Monocytes 0.68 10x3/uL (0.11-0.59); #Neutrophils 9.09 10x3/uL (1.40-6.50); %Basophils 0.1 % (0.0-1.0); %Eosinophils 0.6 % (0.0-10.0); %Lymphocytes 12.0 % (21.0-51.0); %Monocytes 6.0 % (0.0-10.0); %Neutrophils 80.6 % (42.0-75.0); Hematocrit 35.1 % (42.0-52.0); Hemoglobin 12.2 g/dL (14.0-18.0); Mean Corpuscular Hemoglobin 33.3 pg (27.0-31.0); Mean Corpuscular Volume 95.9 fL (78.0-98.0); Platelet Count 129 10x3/uL (130-400); Red Blood Cell (RBC) Count 3.66 mill/uL (4.70-6.10); White Blood Cell (WBC) Count 11.28 10x3/uL (4.8-10.8)
[2025-05-08 05:44] LABS: ALT (SGPT) 66 U/L (Less than 45); AST (SGOT) 53 U/L (11-34); Albumin 3.3 g/dL (3.1-4.5); Alkaline Phosphatase 35 U/L (40-110); Anion Gap 13 mmol/L (10-20); BUN (Urea Nitrogen) 22 mg/dL (8.4-25.7); Bilirubin, Total 0.9 mg/dL (0.3-1.2); CK (CPK) 201 U/L (30-200); Calc. Creatinine Clearance 131 mL/min (70-130); Calcium 8.7 mg/dL (7.8-10.44); Carbon Dioxide 25 mmol/L (23-31); Chloride 103 mmol/L (98-107); Globulin 2.3 g/dL (2.4-3.5); Glucose 107 mg/dL (80-115); Potassium 3.6 mmol/L (3.5-5.1); Sodium 137 mmol/L (136-145)
[2025-05-08] MEDS: Enoxaparin 40 MG (0.4 mL) SYRINGE SC SCH (08:39)
[2025-05-08] MEDS: pyridOXINE 50 MG (B6) TAB PO SCH (08:39)
[2025-05-08] MEDS: Aspirin 81 mg Enteric Coated Tablet PO SCH (08:39)
[2025-05-08] MEDS: Folic Acid 1 MG TAB PO SCH (08:39)
[2025-05-08] MEDS: Cyanocobalamin (Vitamin B-12) 1,000 MCG TAB PO SCH (08:39)
[2025-05-08] MEDS ORDERED: hydrALAZINE 20 MG/ML VIAL SLOW IVP PRN (11:11)
[2025-05-08] MEDS: QUEtiapine 25 MG TAB PO SCH ×2 (12:22→20:58)
[2025-05-09] MEDS: Transdermal Patch Removal LIDOCAINE TOP SCH (02:24)
[2025-05-09 04:47] LABS: Cardiac Risk 1.9 (Less than 4.5); Cholesterol 180.0 mg/dl (< 200 Desired); HDL Cholesterol 95.0 mg/dL (>60 Neg Risk); LDL Cholesterol, Calculated 75.0 mg/dL; Triglycerides 50.0 mg/dL (Less than 150)
[2025-05-09] MEDS: Multivit, Therapeutic 1 TAB PO SCH (08:42)
[2025-05-09 11:24] LABS: Syphilis Antibody Index 0.08 S/CO (<1.00 Non-Reactive)
[2025-05-09 12:52] VITALS: BP 171/104; TEMP 98.7
[2025-05-09] MEDS ORDERED: Pantoprazole 40 MG DR.TAB PO SCH (21:00)
[2025-05-09] MEDS ORDERED: Rosuvastatin 20 MG TAB PO SCH (21:00)
[2025-05-09] MEDS ORDERED: Carvedilol 6.25 MG TAB PO SCH (21:00)
[2025-05-10] MEDS ORDERED: FLU (Fluad Triv) 25-26 (65UP)PF 45 MCG/0.5 ML Syringe IM ONE (09:00)
[2025-05-10] MEDS ORDERED: Colchicine 0.6 MG TAB PO PRN (09:00)
== END 2025-05-09 15:01 | disposition home or self-care (01) | DRG 64 ==
LOC: ERS 13:46 → T4-B 17:44 → 2SE 05-08 13:43
PROVIDERS: ADMIT Student in an Organized Health Care Education/Training Program; ATTEND Internal Medicine
PROC: HZ2ZZZZ Detoxification Services for Substance Abuse Treatment (ICD-10-PCS; principal; 2025-05-07)
DX: I63.89 Other cerebral infarction (principal); G93.41 Metabolic encephalopathy; S22.42XA Multiple fractures of ribs, left side, initial encounter for closed fracture; E51.2 Wernicke's encephalopathy; I50.22 Chronic systolic (congestive) heart failure; K21.9 Gastro-esophageal reflux disease without esophagitis; E78.5 Hyperlipidemia, unspecified; I11.0 Hypertensive heart disease with heart failure; F90.9 Attention-deficit hyperactivity disorder, unspecified type; F12.10 Cannabis abuse, uncomplicated; F10.10 Alcohol abuse, uncomplicated; G47.00 Insomnia, unspecified; Z98.890 Other specified postprocedural states; Z90.49 Acquired absence of other specified parts of digestive tract; Z79.899 Other long term (current) drug therapy; R29.701 NIHSS score 1
CPT/HCPCS: 36415; 36416; 70450; 70496; 70498; 70551; 74176; 80053; 80061; 80306; 80307; 81001; 82140; 82550; 83036; 83605; 83690; 85025; 86780; 93005; 93306; 96361; 96365; 96366; 96375; J1650; J1885; J3411; J3475; J7030